=== PATIENT | male | born 1960 | race African-American/Black ===

== ENCOUNTER 2017-01-23 05:49 | Day surgery (SDC) | payer MEDICARE ==
[~2017-01-23] VITALS: Ht 175.3 cm; Wt 137.0 kg
[~2017-01-23 05:49] MED LIST: ALLO300T PO; AMLO5TAB2 PO; AMOX1TAB64 PO; ASPI-515 PO; ATOR40TA PO; CALC0.25 PO; CALC300T5 PO; CARV-39 PO; CLON0.3T47 PO; COLC0.6T37 PO; GLIP10TA PO; HYDR-3240 PO; INSU100I13 SC; INSU100I28 SC; INSU100V8 SQ; LINA5TAB PO; LOSA25TA5 PO; MULT-516 PO; OXYC5TAB3 PO; TRAZ50TA18 PO; ZOLP10TA PO
[2017-01-23 06:10] VITALS: BP 146/88
[2017-01-23] MEDS ORDERED: LACTATED RINGERS 1,000 ML IV SCH (06:13)
[2017-01-23] MEDS ORDERED: LIDOCAINE 1%, 2ML ONE (06:40)
[2017-01-23] MEDS ORDERED: SODIUM CHLORIDE 0.9% 1,000 ML IV SCH (06:53)
[2017-01-23 06:58] VITALS: BP 146/88
[2017-01-23] MEDS ORDERED: LIDOCAINE 1%, 2ML SQ PRN (07:00)
[2017-01-23] MEDS ORDERED: FENTANYL PF 100 MCG/2ML ONE ×2 (07:00→07:50)
[2017-01-23] MEDS ORDERED: PROTAMINE SULFATE 10 MG/ML, 5ML ONE (07:01)
[2017-01-23] MEDS ORDERED: HEPARIN 1,000 UNITS/ML, 10ML ONE (07:01)
[2017-01-23] MEDS ORDERED: BUPIVACAINE/PF 0.5% ONE (07:01)
[2017-01-23] MEDS ORDERED: THROMBIN 5,000 UNIT VIAL TP ONE (07:02)
[2017-01-23] MEDS ORDERED: LIDOCAINE-MPF 2% ,5ML ONE (07:15)
[2017-01-23] MEDS ORDERED: PROPOFOL 10 MG/ML, 50ML ONE (07:33)
[2017-01-23] MEDS ORDERED: CEFAZOLIN 1,000 MG ONE (07:33)
[2017-01-23] MEDS ORDERED: FENTANYL PF 250 MCG/5ML ONE (08:09)
[2017-01-23] MEDS ORDERED: LABETALOL 5MG/ML, 20ML IV PRN (09:00)
[2017-01-23] MEDS ORDERED: ONDANSETRON 2MG/ML, 2ML IVPush PRN (09:00)
[2017-01-23] MEDS ORDERED: FENTANYL PF 100 MCG/2ML IV PRN (09:00)
[2017-01-23] MEDS ORDERED: OXYcodone 5 MG/5 ML ORAL.SOL UDC PO PRN (09:00)
== END 2017-01-23 11:10 | disposition home or self-care (01) ==
LOC: OUT 05:49
PROVIDERS: ATTEND Surgery Vascular Surgery
DX: T82.590A Other mechanical complication of surgically created arteriovenous fistula, initial encounter (principal); E11.22 Type 2 diabetes mellitus with diabetic chronic kidney disease; I13.2 Hypertensive heart and chronic kidney disease with heart failure and with stage 5 chronic kidney disease, or end stage renal disease; N18.6 End stage renal disease; I50.9 Heart failure, unspecified; Z99.2 Dependence on renal dialysis; I25.10 Atherosclerotic heart disease of native coronary artery without angina pectoris; K21.9 Gastro-esophageal reflux disease without esophagitis; G47.33 Obstructive sleep apnea (adult) (pediatric); Z72.89 Other problems related to lifestyle; Y83.2 Surgical operation with anastomosis, bypass or graft as the cause of abnormal reaction of the patient, or of later complication, without mention of misadventure at the time of the procedure
CPT/HCPCS: 36415; 36821; 37607; 80047; J0690; J1644; J2704; J3010; J3490; J7030; J2720

== ENCOUNTER 2017-04-10 07:42 | Day surgery (SDC) | payer MEDICARE ==
[~2017-04-10] VITALS: Ht 175.3 cm; Wt 135.0 kg
[~2017-04-10 07:42] MED LIST changes: +BUPIVACAINE/PF-EPI 0.5% 1:200K ONE; +HEPARIN 1,000 UNITS/ML, 10ML ONE; +PROTAMINE SULFATE 10 MG/ML, 5ML ONE; +THROMBIN 5,000 UNIT VIAL TP ONE
[2017-04-10] MEDS ORDERED: FENTANYL PF 250 MCG/5ML ONE (08:24)
[2017-04-10] MEDS ORDERED: MIDAZOLAM 1 MG/ML, 2ML ONE (08:24)
[2017-04-10 08:25] VITALS: BP 150/96
[2017-04-10] MEDS ORDERED: CEFAZOLIN 1,000 MG ONE (09:30)
[2017-04-10] MEDS ORDERED: PROPOFOL 10 MG/ML, 20ML ONE (09:30)
[2017-04-10] MEDS ORDERED: SUCCINYLCHOLINE 20 MG/ML, 10ML ONE (09:30)
[2017-04-10] MEDS ORDERED: ROCURONIUM 10 MG/ML ONE (09:30)
[2017-04-10] MEDS ORDERED: SUGAMMADEX 200 MG/2 ML IVPush ONE (10:00)
[2017-04-10] MEDS ORDERED: FENTANYL PF 100 MCG/2ML ONE ×2 (10:54→12:09)
[2017-04-10] MEDS ORDERED: HYDROmorphone 1 MG/ML, 1ML IV PRN (11:00)
[2017-04-10] MEDS ORDERED: METOCLOPRAMIDE 5 MG/ML, 2ML IV PRN (11:00)
[2017-04-10] MEDS ORDERED: ACETAMINOPHEN 325 MG TABLET PO PRN (11:00)
[2017-04-10] MEDS ORDERED: hydrALAzine 20 MG/ML, 1ML IV PRN (11:00)
[2017-04-10] MEDS: FENTANYL PF 100 MCG/2ML IV PRN ×4 (11:00→12:10)
[2017-04-10] MEDS ORDERED: LABETALOL 5MG/ML, 20ML IV PRN (11:00)
[2017-04-10] MEDS ORDERED: ONDANSETRON 2MG/ML, 2ML IVPush PRN (11:00)
[2017-04-10] MEDS ORDERED: OXYcodone 5 MG/5 ML ORAL.SOL UDC ONE ×2 (11:03→11:40)
[2017-04-10] MEDS: OXYcodone 5 MG/5 ML ORAL.SOL UDC PO PRN ×2 (11:05→11:44)
[2017-04-10] MEDS ORDERED: ACETAMINOPHEN 325 MG/10.15 ML UDC ONE (11:40)
[2017-04-10] MEDS ORDERED: HEPARIN 1,000 UNITS/ML, 10ML IV ONE (12:00)
== END 2017-04-10 13:15 ==
LOC: OUT 07:42
PROVIDERS: ATTEND Surgery Vascular Surgery
DX: T82.49XA Other complication of vascular dialysis catheter, initial encounter (principal); E11.22 Type 2 diabetes mellitus with diabetic chronic kidney disease; I12.0 Hypertensive chronic kidney disease with stage 5 chronic kidney disease or end stage renal disease; N18.6 End stage renal disease; Y83.9 Surgical procedure, unspecified as the cause of abnormal reaction of the patient, or of later complication, without mention of misadventure at the time of the procedure; Y92.9 Unspecified place or not applicable; Z91.09 Other allergy status, other than to drugs and biological substances
CPT/HCPCS: 36415; 36832; 80047; C1768; J0330; J0690; J1644; J2250; J2704; J2720; J3010

== ENCOUNTER 2017-05-27 11:21 | Inpatient (IN) | payer MEDICARE ==
[~2017-05-27] VITALS: Ht 175.3 cm; Wt 135.0 kg
[~2017-05-27 11:21] MED LIST changes: -BUPIVACAINE/PF-EPI 0.5% 1:200K ONE; -HEPARIN 1,000 UNITS/ML, 10ML ONE; -PROTAMINE SULFATE 10 MG/ML, 5ML ONE; -THROMBIN 5,000 UNIT VIAL TP ONE
[2017-05-27 12:34] LABS: BLOOD UREA NITROGEN 31 mg/dL (7-18)
[2017-05-27 12:47] LABS: HEMATOCRIT 35.1 % (39.2-51.8); HEMOGLOBIN 11.5 g/dL (13.7-18.0)
[2017-05-27] MEDS ORDERED: LIDOCAINE GEL 2%, 5ML ONE (13:15)
[2017-05-27] MEDS ORDERED: LIDOCAINE GEL 2%, 5ML TP ONE (13:30)
[2017-05-27] MEDS ORDERED: COLCHICINE 0.6 MG TABLET PO PRN (14:30)
[2017-05-27] MEDS ORDERED: TEMAZEPAM 15 MG CAPSULE PO PRN (14:30)
[2017-05-27] MEDS ORDERED: ACETAMINOPHEN 325 MG TABLET PO PRN ×2 (14:30→18:00)
[2017-05-27] MEDS ORDERED: hydrALAzine 20 MG/ML, 1ML IVPush PRN (14:30)
[2017-05-27 15:12] VITALS: BP 168/102
[2017-05-27 15:16] VITALS: BP 168/102
[2017-05-27] MEDS ORDERED: BUPIVACAINE/PF 0.5% ONE (16:20)
[2017-05-27] MEDS ORDERED: HEPARIN 1,000 UNITS/ML, 10ML ONE (16:20)
[2017-05-27] MEDS ORDERED: THROMBIN 5,000 UNIT VIAL TP ONE (16:20)
[2017-05-27] MEDS ORDERED: PROTAMINE SULFATE 10 MG/ML, 5ML ONE (16:20)
[2017-05-27 16:46] LABS: ASPARTATE AMINO TRANSFERASE 16 U/L (15-37)
[2017-05-27] MEDS ORDERED: FENTANYL PF 500 MCG/10ML ONE (16:52)
[2017-05-27] MEDS: CALCIUM CARBONATE 500 MG TAB.CHEW PO SCH (17:07)
[2017-05-27] MEDS ORDERED: ONDANSETRON 2MG/ML, 2ML ONE ×2 (17:23→21:41)
[2017-05-27] MEDS ORDERED: GLYCOPYRROLATE 0.2MG/1ML ONE (17:23)
[2017-05-27] MEDS ORDERED: CEFAZOLIN 1,000 MG ONE (17:23)
[2017-05-27] MEDS ORDERED: ROCURONIUM 10 MG/ML ONE (17:23)
[2017-05-27] MEDS ORDERED: NEOSTIGMINE 1 MG/ML, 10ML ONE (17:23)
[2017-05-27] MEDS ORDERED: PROPOFOL 10 MG/ML, 20ML ONE (17:23)
[2017-05-27] MEDS ORDERED: BUPIVACAINE/PF 0.5% INFIL ONE (17:51)
[2017-05-27] MEDS ORDERED: HEPARIN 1,000 UNITS/ML, 10ML IV ONE ×2 (17:53→20:08)
[2017-05-27] MEDS ORDERED: FENTANYL PF 100 MCG/2ML IV PRN (18:00)
[2017-05-27] MEDS ORDERED: ALBUTEROL SULFATE 2.5 MG/3 ML NPPB PRN (18:00)
[2017-05-27] MEDS ORDERED: EPHEDRINE 50 MG/ML, 1ML IVPush PRN (18:00)
[2017-05-27] MEDS ORDERED: METOPROLOL 1 MG/ML, 5ML IV PRN (18:00)
[2017-05-27] MEDS ORDERED: OXYcodone 5 MG/5 ML ORAL.SOL UDC PO PRN (18:00)
[2017-05-27] MEDS ORDERED: ONDANSETRON 2MG/ML, 2ML IVPush PRN (18:00)
[2017-05-27] MEDS ORDERED: LABETALOL 5MG/ML, 20ML IV PRN (18:00)
[2017-05-27] MEDS ORDERED: HYDROmorphone 1 MG/ML, 1ML IV PRN (18:00)
[2017-05-27] MEDS ORDERED: HEPARIN 1,000 UNITS/ML, 30ML ONE (20:01)
[2017-05-27] MEDS ORDERED: HEPARIN 1,000 UNITS/ML, 30ML IVPush ONE (20:04)
[2017-05-27] MEDS ORDERED: VISIPAQUE 320MG/ML, 50ML BOTTLE IV ONE ×2 (21:01→21:04)
[2017-05-27] MEDS ORDERED: VISIPAQUE 320MG/ML, 50ML BOTTLE ONE (21:17)
[2017-05-27] MEDS ORDERED: ACETAMINOPHEN 325 MG TABLET ONE (21:37)
[2017-05-27] MEDS ORDERED: PROMETHAZINE 25 MG/ML, 1ML ONE (21:38)
[2017-05-27] MEDS ORDERED: OXYcodone 5 MG/5 ML ORAL.SOL UDC ONE (21:39)
[2017-05-27] MEDS ORDERED: METOPROLOL 1 MG/ML, 5ML ONE (21:54)
[2017-05-27 22:30] VITALS: BP 133/86
[2017-05-27] MEDS: ATORVASTATIN 40 MG TABLET PO SCH (23:06)
[2017-05-27] MEDS: CARVEDILOL 25 MG TABLET PO SCH (23:06)
[2017-05-27] MEDS: MORPHINE SULFATE 4 MG/ML, 1ML IVPush PRN (23:06)
[2017-05-28] MEDS: INSULIN DETEMIR 100 UNITS/ML, PEN SQ-INSULIN SCH ×2 (00:22→23:02)
[2017-05-28] MEDS: TRAZODONE 50MG TABLET PO PRN (01:31)
[2017-05-28] MEDS: HYDROcodone/APAP 5/325 TABLET PO PRN ×2 (03:10→23:02)
[2017-05-28 04:12] VITALS: BP 123/64
[2017-05-28 05:07] LABS: BLOOD UREA NITROGEN 36 mg/dL (7-18)
[2017-05-28 08:00] VITALS: BP 117/74
[2017-05-28] MEDS ORDERED: ALLOPURINOL 300 MG TABLET PO SCH (09:00)
[2017-05-28] MEDS: CALCIUM CARBONATE 500 MG TAB.CHEW PO SCH ×3 (09:31→17:00)
[2017-05-28] MEDS: CARVEDILOL 25 MG TABLET PO SCH ×2 (09:32→22:20)
[2017-05-28] MEDS: ASPIRIN 81 MG TABLET EC PO SCH (09:32)
[2017-05-28] MEDS: MULTIVITAMIN 1 TABLET PO SCH (09:32)
[2017-05-28] MEDS: LOSARTAN 25MG TABLET PO SCH (09:32)
[2017-05-28] MEDS: ALLOPURINOL 100 MG TABLET PO SCH (09:32)
[2017-05-28] MEDS: AMLODIPINE 5 MG TABLET PO SCH (09:33)
[2017-05-28 14:00] VITALS: BP 110/68
[2017-05-28] MEDS ORDERED: FENTANYL PF 100 MCG/2ML ONE ×2 (14:31)
[2017-05-28] MEDS ORDERED: MIDAZOLAM 1 MG/ML, 2ML ONE (14:31)
[2017-05-28] MEDS ORDERED: THROMBIN 20,000 UNIT VIAL TP ONE (14:34)
[2017-05-28] MEDS ORDERED: HEPARIN 1,000 UNITS/ML, 10ML ONE (14:34)
[2017-05-28] MEDS ORDERED: PROTAMINE SULFATE 10 MG/ML, 5ML ONE (14:34)
[2017-05-28] MEDS ORDERED: PAPAVERINE 30 MG/ML, 2ML ONE (14:34)
[2017-05-28] MEDS ORDERED: KETAMINE 10 MG/ML, 20ML ONE (14:46)
[2017-05-28] MEDS ORDERED: ONDANSETRON 2MG/ML, 2ML ONE (14:46)
[2017-05-28] MEDS ORDERED: PHENYLEPHRINE 10 MG/ML ONE (14:46)
[2017-05-28] MEDS ORDERED: SUCCINYLCHOLINE 20 MG/ML, 10ML ONE (14:46)
[2017-05-28] MEDS ORDERED: CEFAZOLIN 1,000 MG ONE (14:46)
[2017-05-28] MEDS ORDERED: METOCLOPRAMIDE 5 MG/ML, 2ML ONE (14:46)
[2017-05-28] MEDS ORDERED: ROCURONIUM 10 MG/ML ONE (14:46)
[2017-05-28] MEDS ORDERED: PROPOFOL 10 MG/ML, 20ML ONE (14:46)
[2017-05-28] MEDS ORDERED: HEPARIN 5,000 UNITS/ML, 1ML ONE (15:19)
[2017-05-28] MEDS ORDERED: LABETALOL 5MG/ML, 20ML IV PRN (15:30)
[2017-05-28] MEDS ORDERED: PROMETHAZINE 25 MG/ML, 1ML IV PRN (15:30)
[2017-05-28] MEDS ORDERED: OXYcodone 5 MG/5 ML ORAL.SOL UDC PO PRN (15:30)
[2017-05-28] MEDS ORDERED: ONDANSETRON 2MG/ML, 2ML IVPush PRN (15:30)
[2017-05-28] MEDS ORDERED: FENTANYL PF 100 MCG/2ML IV PRN (15:30)
[2017-05-28] MEDS ORDERED: MEPERIDINE/PF 25MG/0.5ML IVPush PRN (15:30)
[2017-05-28] MEDS ORDERED: HYDROmorphone 1 MG/ML, 1ML IV PRN (15:30)
[2017-05-28] MEDS: INSULIN REGULAR 100 UNITS/ML, 3ML VIAL SQ-INSULIN SCH ×2 (16:00→23:02)
[2017-05-28] MEDS ORDERED: BUPIVACAINE/PF 0.5% ONE (17:15)
[2017-05-28] MEDS ORDERED: OMNIPAQUE 350 MG/ML, 50 ML BOTTLE IV ONE (17:30)
[2017-05-28] MEDS ORDERED: HYDROmorphone 1 MG/ML, 1ML ONE (17:30)
[2017-05-28] MEDS ORDERED: OMNIPAQUE 350 MG/ML, 50 ML BOTTLE ONE (18:10)
[2017-05-28] MEDS ORDERED: OXYcodone 5 MG/5 ML ORAL.SOL UDC ONE (18:23)
[2017-05-28] MEDS: MORPHINE SULFATE 4 MG/ML, 1ML IVPush PRN (19:47)
[2017-05-28] MEDS: ONDANSETRON 2MG/ML, 2ML IVPush PRN (19:47)
[2017-05-28 21:15] VITALS: BP 101/58
[2017-05-28 22:09] VITALS: BP 105/57
[2017-05-28] MEDS: ATORVASTATIN 40 MG TABLET PO SCH (22:20)
[2017-05-29] MEDS: TRAZODONE 50MG TABLET PO PRN (00:09)
[2017-05-29 01:43] VITALS: BP 103/61
[2017-05-29] MEDS: ONDANSETRON 2MG/ML, 2ML IVPush PRN (04:20)
[2017-05-29 04:51] LABS: BLOOD UREA NITROGEN 37 mg/dL (7-18)
[2017-05-29] MEDS: INSULIN REGULAR 100 UNITS/ML, 3ML VIAL SQ-INSULIN SCH ×3 (06:35→16:10)
[2017-05-29 07:00] VITALS: BP 109/61
[2017-05-29] MEDS: CALCIUM CARBONATE 500 MG TAB.CHEW PO SCH ×3 (08:06→16:10)
[2017-05-29] MEDS: LOSARTAN 25MG TABLET PO SCH (08:07)
[2017-05-29] MEDS: ALLOPURINOL 100 MG TABLET PO SCH (08:07)
[2017-05-29] MEDS: MULTIVITAMIN 1 TABLET PO SCH (08:07)
[2017-05-29] MEDS: AMLODIPINE 5 MG TABLET PO SCH (08:07)
[2017-05-29] MEDS: ASPIRIN 81 MG TABLET EC PO SCH (08:07)
[2017-05-29] MEDS: CARVEDILOL 25 MG TABLET PO SCH (08:07)
[2017-05-29] MEDS ORDERED: CALCITRIOL 0.25 MCG CAPSULE PO SCH (09:00)
[2017-05-29] MEDS ORDERED: ALBUMIN HUMAN 25% 100 ML IV PRN (10:30)
[2017-05-29] MEDS ORDERED: ALBUMIN HUMAN 25% 50 ML IV PRN (10:30)
[2017-05-29] MEDS ORDERED: HYDR-3240 PO (14:37)
[2017-05-29 14:40] VITALS: BP 107/60
[2017-05-29 16:12] VITALS: BP 114/62
[2017-05-29 18:00] VITALS: BP 114/62
[2017-05-30] MEDS ORDERED: ALLOPURINOL 100 MG TABLET PO SCH (09:00)
[2017-05-30 10:53] LABS: HEP B SURF. AB 11.4 mIU/mL (0.0-10.0)
== END 2017-05-29 18:15 | disposition home or self-care (01) | DRG 252 ==
LOC: ED 12:19 → EDIP 12:35 → OBSVTOIN 12:35 → 4NOR 14:45
PROVIDERS: ADMIT Hospitalist; ATTEND Internal Medicine
PROC: 05CB0ZZ Extirpation of Matter from Right Basilic Vein, Open Approach (ICD-10-PCS; 2017-05-27)
PROC: 03WY0JZ Revision of Synthetic Substitute in Upper Artery, Open Approach (ICD-10-PCS; 2017-05-27)
PROC: 057B0ZZ Dilation of Right Basilic Vein, Open Approach (ICD-10-PCS; 2017-05-27)
PROC: B2141ZZ Fluoroscopy of Right Heart using Low Osmolar Contrast (ICD-10-PCS; 2017-05-27)
PROC: 0JPV3XZ Removal of Tunneled Vascular Access Device from Upper Extremity Subcutaneous Tissue and Fascia, Percutaneous Approach (ICD-10-PCS; 2017-05-27)
PROC: 037Y3ZZ Dilation of Upper Artery, Percutaneous Approach (ICD-10-PCS; principal; 2017-05-27 17:00)
PROC: 02H633Z Insertion of Infusion Device into Right Atrium, Percutaneous Approach (ICD-10-PCS; 2017-05-28)
PROC: 03170JF Bypass Right Brachial Artery to Lower Arm Vein with Synthetic Substitute, Open Approach (ICD-10-PCS; 2017-05-28)
PROC: 0JH63XZ Insertion of Tunneled Vascular Access Device into Chest Subcutaneous Tissue and Fascia, Percutaneous Approach (ICD-10-PCS; 2017-05-28)
DX: T82.868A Thrombosis due to vascular prosthetic devices, implants and grafts, initial encounter (principal); N18.6 End stage renal disease; I13.2 Hypertensive heart and chronic kidney disease with heart failure and with stage 5 chronic kidney disease, or end stage renal disease; E11.22 Type 2 diabetes mellitus with diabetic chronic kidney disease; Z68.41 Body mass index [BMI] 40.0-44.9, adult; D63.1 Anemia in chronic kidney disease; E66.01 Morbid (severe) obesity due to excess calories; E78.5 Hyperlipidemia, unspecified; I48.91 Unspecified atrial fibrillation; I50.9 Heart failure, unspecified; E11.51 Type 2 diabetes mellitus with diabetic peripheral angiopathy without gangrene; K21.9 Gastro-esophageal reflux disease without esophagitis; M10.9 Gout, unspecified; Y83.2 Surgical operation with anastomosis, bypass or graft as the cause of abnormal reaction of the patient, or of later complication, without mention of misadventure at the time of the procedure; Z99.2 Dependence on renal dialysis; Z88.8 Allergy status to other drugs, medicaments and biological substances
CPT/HCPCS: 36415; 71010; 75710; 76000; 80048; 80053; 80069; 82962; 85025; 85610; 85730; 86704; 86706; 87340; 93005; 99285; C1894; J0690; J1170; J1644; J1815; J2250; J2405; J2704; J2710; J2720; J3010; J3490; P9047; Q9967; C1751; C1757; C1768; C1769; J0330; J0360; J2370; J2440; J2765

== ENCOUNTER 2017-10-12 09:11 | Day surgery (SDC) | payer MEDICARE ==
[~2017-10-12] VITALS: Ht 175.3 cm; Wt 133.3 kg
[2017-10-12] MEDS ORDERED: BUPIVACAINE/PF 0.5% ONE (10:05)
[2017-10-12] MEDS ORDERED: SODIUM CHLORIDE 0.9% 1,000 ML IV SCH (10:20)
[2017-10-12 10:35] VITALS: BP 168/92
[2017-10-12] MEDS ORDERED: GABA300C10 PO (10:35)
[2017-10-12] MEDS ORDERED: HYDR-3240 PO (11:00)
[2017-10-12] MEDS ORDERED: FENTANYL PF 250 MCG/5ML ONE (11:30)
[2017-10-12] MEDS ORDERED: MIDAZOLAM 1 MG/ML, 2ML ONE (11:30)
[2017-10-12] MEDS ORDERED: CEFAZOLIN 1,000 MG ONE ×3 (11:31)
[2017-10-12] MEDS ORDERED: PROPOFOL 10 MG/ML, 20ML ONE (11:31)
[2017-10-12] MEDS ORDERED: SODIUM CHLORIDE 0.9% PF 10ML ONE (11:32)
[2017-10-12] MEDS ORDERED: ROCURONIUM 10 MG/ML,10ML ONE (11:33)
[2017-10-12] MEDS ORDERED: GLYCOPYRROLATE 0.4 MG/2 ML, 2ML ONE ×2 (11:34)
[2017-10-12] MEDS ORDERED: NEOSTIGMINE 1 MG/ML, 10ML ONE (11:34)
[2017-10-12] MEDS ORDERED: HEPARIN 1,000 UNITS/ML, 10ML DIALYCATH ONE (12:22)
== END 2017-10-12 14:15 ==
LOC: OUT 09:11
PROVIDERS: ATTEND Surgery Vascular Surgery
DX: I12.0 Hypertensive chronic kidney disease with stage 5 chronic kidney disease or end stage renal disease (principal); N18.6 End stage renal disease; E11.22 Type 2 diabetes mellitus with diabetic chronic kidney disease; Z79.82 Long term (current) use of aspirin; Z88.8 Allergy status to other drugs, medicaments and biological substances; Z79.4 Long term (current) use of insulin
CPT/HCPCS: 36415; 49324; 80047; C1750; J0690; J1644; J2250; J2704; J2710; J3010; J3490; J7030

== ENCOUNTER 2017-11-13 14:11 | Day surgery (SDC) | payer MEDICARE ==
[~2017-11-13] VITALS: Ht 175.3 cm; Wt 133.4 kg
[~2017-11-13 14:11] MED LIST changes: +GABA300C10 PO; +HEPARIN 1,000 UNITS/ML, 10ML ONE
[2017-11-13] MEDS ORDERED: EPINEPHRINE 1 MG/ML, 1ML ONE (14:23)
[2017-11-13] MEDS ORDERED: BUPIVACAINE/PF 0.5% ONE (14:23)
[2017-11-13] MEDS ORDERED: PREG50CA PO (15:00)
[2017-11-13] MEDS ORDERED: SODIUM CHLORIDE 0.9% 1,000 ML IV SCH (15:09)
[2017-11-13 15:10] VITALS: BP 187/121
[2017-11-13] MEDS ORDERED: LIDOCAINE-MPF 1%, 2ML ONE (15:16)
[2017-11-13 16:06] VITALS: BP 163/96
[2017-11-13] MEDS ORDERED: FENTANYL PF 100 MCG/2ML ONE (16:07)
[2017-11-13] MEDS ORDERED: DEXAMETHASONE 4 MG/ML, 1ML ONE (16:30)
[2017-11-13] MEDS ORDERED: ONDANSETRON 2MG/ML, 2ML ONE (16:30)
[2017-11-13] MEDS ORDERED: LIDOCAINE 1%, 2ML SQ PRN (16:30)
[2017-11-13] MEDS ORDERED: PROPOFOL 10 MG/ML, 20ML ONE (16:30)
[2017-11-13] MEDS ORDERED: SUCCINYLCHOLINE 20 MG/ML, 10ML ONE (16:30)
[2017-11-13] MEDS ORDERED: CEFAZOLIN 1,000 MG ONE (16:30)
[2017-11-13] MEDS ORDERED: FENTANYL PF 100 MCG/2ML IV PRN (17:00)
[2017-11-13] MEDS ORDERED: OXYcodone 5 MG/5 ML ORAL.SOL UDC PO PRN (17:00)
[2017-11-13] MEDS ORDERED: LABETALOL 5MG/ML, 20ML IV PRN (17:00)
[2017-11-13] MEDS ORDERED: MEPERIDINE/PF 25MG/0.5ML IVPush PRN (17:00)
[2017-11-13] MEDS ORDERED: PROMETHAZINE 12.5 MG SUPP PR PRN (17:00)
[2017-11-13] MEDS ORDERED: MIDAZOLAM 1 MG/ML, 2ML IV PRN (17:00)
[2017-11-13] MEDS ORDERED: DIAZEPAM 5 MG/ML, 2ML IVPush PRN (17:00)
[2017-11-13] MEDS ORDERED: ACETAMINOPHEN 325 MG TABLET PO PRN (17:00)
[2017-11-13] MEDS ORDERED: HYDROmorphone 1 MG/ML, 1ML IV PRN (17:00)
[2017-11-13] MEDS ORDERED: PROMETHAZINE 25 MG/ML, 1ML IV PRN (17:00)
[2017-11-13] MEDS ORDERED: ALBUTEROL/IPRATROPIUM 2.5MG/0.5MG, 3 ML NPPB PRN (17:00)
[2017-11-13] MEDS ORDERED: ONDANSETRON 2MG/ML, 2ML IVPush PRN (17:00)
[2017-11-13] MEDS ORDERED: ACETAMINOPHEN 650 MG/20.3 ML UDC ONE (17:24)
== END 2017-11-13 18:26 | disposition home or self-care (01) ==
LOC: OUT 14:11
PROVIDERS: ATTEND Surgery Vascular Surgery
DX: E11.22 Type 2 diabetes mellitus with diabetic chronic kidney disease (principal); I13.11 Hypertensive heart and chronic kidney disease without heart failure, with stage 5 chronic kidney disease, or end stage renal disease; N18.6 End stage renal disease; I25.10 Atherosclerotic heart disease of native coronary artery without angina pectoris; E78.5 Hyperlipidemia, unspecified; M10.9 Gout, unspecified; F41.1 Generalized anxiety disorder; K21.9 Gastro-esophageal reflux disease without esophagitis; Z88.8 Allergy status to other drugs, medicaments and biological substances; Z99.2 Dependence on renal dialysis
CPT/HCPCS: 36415; 49324; 80047; 93005; C1750; J0171; J0330; J0690; J1100; J1644; J2405; J2704; J3010; J3490

== ENCOUNTER 2018-01-02 13:46 | Emergency (ER) | payer MEDICARE ==
[~2018-01-02] VITALS: Ht 175.3 cm; Wt 133.0 kg
[~2018-01-02 13:46] MED LIST changes: -HEPARIN 1,000 UNITS/ML, 10ML ONE; +PREG50CA PO
[2018-01-02 13:55] VITALS: BP 164/84
[2018-01-02 14:38] LABS: BASOPHILS # (AUTO) 0.02 x10^3/uL (0-0.1); BASOPHILS % (AUTO) 0 % (0-1); EOSINOPHILS # (AUTO) 0.17 x10^3/uL (0-0.4); EOSINOPHILS % (AUTO) 3 % (1-7); LYMPHOCYTES # (AUTO) 0.72 x10^3/uL (1-3.4); LYMPHOCYTES % (AUTO) 11 % (22-44); MD NO; MEAN CORPUSCULAR HEMOGLOBIN 32.3 pg (27.5-34.5); MEAN CORPUSCULAR HGB CONC 33.4 g/dL (33.2-36.2); MEAN CORPUSCULAR VOLUME 96.8 fL (81-97); MEAN PLATELET VOLUME 8.1 fL (7.4-10.4); MONOCYTES # (AUTO) 0.31 x10^3/uL (0.2-0.8); MONOCYTES % (AUTO) 5 % (2-9); NEUTROPHILS % (AUTO) 81 % (42-75); PLATELET COUNT 275 x10^3/uL (130-400); RED BLOOD COUNT 3.42 x10^6/uL (4.38-5.82); RED CELL DISTRIBUTION WIDTH 14.3 % (9.4-14.8)
[2018-01-02 14:46] LABS: ALBUMIN 3.5 g/dL (3.4-5.0); ANION GAP 11 mmol/L (5-15); CALCIUM 8.4 mg/dL (8.5-10.1); CHLORIDE 102 mmol/L (98-107)
[2018-01-02] MEDS ORDERED: CEFTRIAXONE 1,000 MG IM ONE (16:00)
[2018-01-02] MEDS ORDERED: HYDROcodone/APAP 5/325 TABLET PO ONE (16:00)
[2018-01-02] MEDS ORDERED: LIDOCAINE-MPF 1%, 5ML ONE (16:08)
[2018-01-02] MEDS ORDERED: CEFTRIAXONE 1,000 MG ONE (16:08)
[2018-01-02] MEDS ORDERED: HYDROcodone/APAP 5/325 TABLET ONE (16:09)
== END 2018-01-02 18:06 | disposition home or self-care (01) ==
LOC: ED 17:22
DX: S99.921A Unspecified injury of right foot, initial encounter (principal); E11.621 Type 2 diabetes mellitus with foot ulcer; L97.509 Non-pressure chronic ulcer of other part of unspecified foot with unspecified severity; W06.XXXA Fall from bed, initial encounter; Y93.89 Activity, other specified; Y99.8 Other external cause status; Y92.89 Other specified places as the place of occurrence of the external cause
CPT/HCPCS: 36415; 73660; 80048; 82040; 85025; 96372; 99285; J0696

== ENCOUNTER 2018-01-26 12:32 | Emergency (ER) | payer MEDICARE ==
[~2018-01-26] VITALS: Ht 175.3 cm; Wt 139.6 kg
[2018-01-26 12:33] VITALS: BP 150/88
== END 2018-01-26 16:00 | disposition home or self-care (01) ==
LOC: ED 15:54
DX: L89.893 Pressure ulcer of other site, stage 3 (principal); L89.892 Pressure ulcer of other site, stage 2; E11.621 Type 2 diabetes mellitus with foot ulcer; K21.9 Gastro-esophageal reflux disease without esophagitis; I12.0 Hypertensive chronic kidney disease with stage 5 chronic kidney disease or end stage renal disease; E11.22 Type 2 diabetes mellitus with diabetic chronic kidney disease; N18.6 End stage renal disease; I48.91 Unspecified atrial fibrillation; G89.29 Other chronic pain; E83.52 Hypercalcemia; Z99.2 Dependence on renal dialysis
CPT/HCPCS: 99284

== ENCOUNTER → 2018-01-31 | Outpatient (CLI) | payer MEDICARE | END | disposition home or self-care (01) | LOC: WOUND 10:47 | PROVIDERS: ATTEND Family Medicine | DX: E11.621 Type 2 diabetes mellitus with foot ulcer (principal); L97.521 Non-pressure chronic ulcer of other part of left foot limited to breakdown of skin; L97.511 Non-pressure chronic ulcer of other part of right foot limited to breakdown of skin; E11.22 Type 2 diabetes mellitus with diabetic chronic kidney disease; I13.2 Hypertensive heart and chronic kidney disease with heart failure and with stage 5 chronic kidney disease, or end stage renal disease; N18.6 End stage renal disease; I50.9 Heart failure, unspecified; E78.5 Hyperlipidemia, unspecified; E66.01 Morbid (severe) obesity due to excess calories; I89.0 Lymphedema, not elsewhere classified; I48.91 Unspecified atrial fibrillation; K21.9 Gastro-esophageal reflux disease without esophagitis; M10.9 Gout, unspecified; F32.9 Major depressive disorder, single episode, unspecified; Z99.2 Dependence on renal dialysis; Z79.4 Long term (current) use of insulin; Z79.82 Long term (current) use of aspirin; Z68.41 Body mass index [BMI] 40.0-44.9, adult | CPT/HCPCS: 11042; G0463; WOU0463 ==

== ENCOUNTER → 2018-02-07 | Outpatient (CLI) | payer MEDICARE | END | disposition home or self-care (01) | LOC: WOUND 14:21 | PROVIDERS: ATTEND Internal Medicine | DX: E11.621 Type 2 diabetes mellitus with foot ulcer (principal); L97.521 Non-pressure chronic ulcer of other part of left foot limited to breakdown of skin; L97.511 Non-pressure chronic ulcer of other part of right foot limited to breakdown of skin; E11.22 Type 2 diabetes mellitus with diabetic chronic kidney disease; I13.2 Hypertensive heart and chronic kidney disease with heart failure and with stage 5 chronic kidney disease, or end stage renal disease; N18.6 End stage renal disease; I50.9 Heart failure, unspecified; E78.5 Hyperlipidemia, unspecified; E66.01 Morbid (severe) obesity due to excess calories; G89.29 Other chronic pain; I48.91 Unspecified atrial fibrillation; K21.9 Gastro-esophageal reflux disease without esophagitis; M10.9 Gout, unspecified; F32.9 Major depressive disorder, single episode, unspecified; Z99.2 Dependence on renal dialysis; Z68.41 Body mass index [BMI] 40.0-44.9, adult; Z79.4 Long term (current) use of insulin; Z79.82 Long term (current) use of aspirin | CPT/HCPCS: 97597 ==

== ENCOUNTER → 2018-02-21 | Outpatient (CLI) | payer MEDICARE | END | disposition home or self-care (01) | LOC: WOUND 14:30 | PROVIDERS: ATTEND Internal Medicine | DX: E11.621 Type 2 diabetes mellitus with foot ulcer (principal); L97.511 Non-pressure chronic ulcer of other part of right foot limited to breakdown of skin; E66.01 Morbid (severe) obesity due to excess calories; K21.9 Gastro-esophageal reflux disease without esophagitis; E11.22 Type 2 diabetes mellitus with diabetic chronic kidney disease; I13.2 Hypertensive heart and chronic kidney disease with heart failure and with stage 5 chronic kidney disease, or end stage renal disease; N18.6 End stage renal disease; I50.9 Heart failure, unspecified; E78.5 Hyperlipidemia, unspecified; F32.9 Major depressive disorder, single episode, unspecified; E11.40 Type 2 diabetes mellitus with diabetic neuropathy, unspecified; G89.29 Other chronic pain; I48.91 Unspecified atrial fibrillation; I89.0 Lymphedema, not elsewhere classified; Z68.41 Body mass index [BMI] 40.0-44.9, adult; Z99.2 Dependence on renal dialysis; Z79.4 Long term (current) use of insulin | CPT/HCPCS: 97602 ==

== ENCOUNTER → 2018-03-08 | Outpatient (CLI) | payer MEDICARE ==
[~2018-03-08] MED LIST changes: +NAPR375T5 PO
== END | disposition home or self-care (01) ==
LOC: WOUND 11:00
PROVIDERS: ATTEND Internal Medicine
DX: E11.621 Type 2 diabetes mellitus with foot ulcer (principal); L97.511 Non-pressure chronic ulcer of other part of right foot limited to breakdown of skin; L97.524 Non-pressure chronic ulcer of other part of left foot with necrosis of bone; B35.1 Tinea unguium; E11.22 Type 2 diabetes mellitus with diabetic chronic kidney disease; I13.0 Hypertensive heart and chronic kidney disease with heart failure and stage 1 through stage 4 chronic kidney disease, or unspecified chronic kidney disease; N18.6 End stage renal disease; I50.9 Heart failure, unspecified; E11.65 Type 2 diabetes mellitus with hyperglycemia; E11.40 Type 2 diabetes mellitus with diabetic neuropathy, unspecified; E66.9 Obesity, unspecified; E78.5 Hyperlipidemia, unspecified; I48.91 Unspecified atrial fibrillation; N25.81 Secondary hyperparathyroidism of renal origin; K21.9 Gastro-esophageal reflux disease without esophagitis; M10.9 Gout, unspecified; F32.9 Major depressive disorder, single episode, unspecified; Z86.73 Personal history of transient ischemic attack (TIA), and cerebral infarction without residual deficits; Z99.2 Dependence on renal dialysis; Z79.4 Long term (current) use of insulin; Z79.82 Long term (current) use of aspirin; Z79.899 Other long term (current) drug therapy; Z68.41 Body mass index [BMI] 40.0-44.9, adult
CPT/HCPCS: 11042

== ENCOUNTER 2018-03-11 14:32 | Inpatient (IN) | payer MEDICARE ==
[~2018-03-11] VITALS: Ht 175.3 cm; Wt 134.8 kg
[~2018-03-11 14:32] MED LIST changes: -NAPR375T5 PO
[2018-03-11] MEDS ORDERED: LIDOCAINE GEL 2%, 5ML ONE (14:57)
[2018-03-11] MEDS ORDERED: DIPHENHYDRAMINE 50 MG/ML, 1ML IVPush ONE (15:00)
[2018-03-11] MEDS ORDERED: methylPREDNISolone SOD SUCC 125 MG/2 ML ONE (15:00)
[2018-03-11] MEDS ORDERED: DIPHENHYDRAMINE 50 MG/ML, 1ML ONE (15:00)
[2018-03-11] MEDS ORDERED: methylPREDNISolone SOD SUCC 125 MG/2 ML IVPush ONE (15:00)
[2018-03-11] MEDS ORDERED: FAMOTIDINE 20 MG/2 ML IVPush ONE (15:00)
[2018-03-11] MEDS ORDERED: FAMOTIDINE 20 MG/2 ML ONE (15:01)
[2018-03-11] MEDS ORDERED: GABA300C10 PO (17:15)
[2018-03-11 18:14] LABS: BASOPHILS # (AUTO) 0.02 x10^3/uL (0-0.1); BASOPHILS % (AUTO) 0 % (0-1); EOSINOPHILS # (AUTO) 0.28 x10^3/uL (0-0.4); EOSINOPHILS % (AUTO) 3 % (1-7); LYMPHOCYTES # (AUTO) 0.26 x10^3/uL (1-3.4); LYMPHOCYTES % (AUTO) 3 % (22-44); MD NO; MEAN CORPUSCULAR HEMOGLOBIN 32.4 pg (27.5-34.5); MEAN CORPUSCULAR HGB CONC 32.8 g/dL (33.2-36.2); MEAN CORPUSCULAR VOLUME 98.6 fL (81-97); MEAN PLATELET VOLUME 8.5 fL (7.4-10.4); MONOCYTES # (AUTO) 0.38 x10^3/uL (0.2-0.8); MONOCYTES % (AUTO) 4 % (2-9); NEUTROPHILS # (AUTO) 9.37 x10^3/uL (1.8-6.8); NEUTROPHILS % (AUTO) 91 % (42-75); PLATELET COUNT 236 x10^3/uL (130-400); RED BLOOD COUNT 3.45 x10^6/uL (4.38-5.82); RED CELL DISTRIBUTION WIDTH 16.5 % (9.4-14.8)
[2018-03-11 18:21] LABS: ALBUMIN 2.9 g/dL (3.4-5.0); ANION GAP 14 mmol/L (5-15); CALCIUM 8.3 mg/dL (8.5-10.1); CHLORIDE 99 mmol/L (98-107)
[2018-03-11] MEDS ORDERED: COLCHICINE 0.6 MG TABLET PO PRN (19:00)
[2018-03-11] MEDS ORDERED: ONDANSETRON 2MG/ML, 2ML IVPush PRN (19:00)
[2018-03-11] MEDS ORDERED: ONDANSETRON ODT 4 MG PO PRN (19:00)
[2018-03-11] MEDS ORDERED: hydrALAzine 20 MG/ML, 1ML IVPush PRN (19:00)
[2018-03-11] MEDS ORDERED: ENALAPRILAT 1.25 MG/ML, 2ML IVPush PRN (19:00)
[2018-03-11] MEDS: ATORVASTATIN 40 MG TABLET PO SCH (21:30)
[2018-03-11] MEDS: CARVEDILOL 25 MG TABLET PO SCH (21:30)
[2018-03-11] MEDS: GABAPENTIN 300 MG CAPSULE PO SCH (21:30)
[2018-03-11] MEDS: FAMOTIDINE 20 MG TABLET PO SCH (21:30)
[2018-03-11 21:34] VITALS: BP 160/94
[2018-03-11] MEDS: INSULIN GLARGINE 100 UNITS/ML, PEN SQ-INSULIN SCH (22:19)
[2018-03-11] MEDS: INSULIN LISPRO 100 UNITS/ML, PEN SQ-INSULIN SCH (22:20)
[2018-03-11 22:22] VITALS: BP 171/95
[2018-03-12 01:02] VITALS: BP 114/59
[2018-03-12 05:32] LABS: MEAN CORPUSCULAR HEMOGLOBIN 32.5 pg (27.5-34.5); MEAN CORPUSCULAR HGB CONC 33.4 g/dL (33.2-36.2); MEAN CORPUSCULAR VOLUME 97.2 fL (81-97); MEAN PLATELET VOLUME 8.8 fL (7.4-10.4); PLATELET COUNT 223 x10^3/uL (130-400); RED BLOOD COUNT 3.15 x10^6/uL (4.38-5.82); RED CELL DISTRIBUTION WIDTH 16.6 % (9.4-14.8)
[2018-03-12 05:47] LABS: ALANINE AMINOTRANSFERASE 13 U/L (12-78); ALBUMIN 2.7 g/dL (3.4-5.0); ANION GAP 15 mmol/L (5-15); CALCIUM 7.6 mg/dL (8.5-10.1); CHLORIDE 99 mmol/L (98-107)
[2018-03-12 05:57] LABS: ALKALINE PHOSPHATASE 53 U/L (45-117)
[2018-03-12 06:13] LABS: BASOPHILS % (AUTO) 0 % (0-1); EOSINOPHILS % (AUTO) 0 % (1-7); LYMPHOCYTES # (AUTO) 0.23 x10^3/uL (1-3.4); LYMPHOCYTES % (AUTO) 2 % (22-44); MD SCAN; MONOCYTES # (AUTO) 0.13 x10^3/uL (0.2-0.8); MONOCYTES % (AUTO) 1 % (2-9); NEUTROPHILS # (AUTO) 9.68 x10^3/uL (1.8-6.8); NEUTROPHILS % (AUTO) 96 % (42-75)
[2018-03-12 07:45] VITALS: BP 109/68
[2018-03-12] MEDS ORDERED: ALUMINUM HYDROXIDE 64 MG/ML ORAL.SUSP PO SCH (08:00)
[2018-03-12] MEDS: CARVEDILOL 25 MG TABLET PO SCH ×2 (08:06→21:11)
[2018-03-12] MEDS: MULTIVITAMIN 1 TABLET PO SCH (08:06)
[2018-03-12] MEDS: INSULIN LISPRO 100 UNITS/ML, PEN SQ-INSULIN SCH ×4 (08:06→21:10)
[2018-03-12] MEDS: GABAPENTIN 300 MG CAPSULE PO SCH (08:07)
[2018-03-12] MEDS: ASPIRIN 81 MG TABLET EC PO SCH (08:07)
[2018-03-12] MEDS: PREGABALIN 25 MG CAPSULE PO SCH (08:07)
[2018-03-12] MEDS: ALLOPURINOL 300 MG TABLET PO SCH (08:07)
[2018-03-12] MEDS: FAMOTIDINE 20 MG TABLET PO SCH ×2 (08:07→21:11)
[2018-03-12] MEDS: AMLODIPINE 5 MG TABLET PO SCH (08:07)
[2018-03-12] MEDS: CALCITRIOL 0.25 MCG CAPSULE PO SCH (08:07)
[2018-03-12] MEDS: LINAGLIPTIN 5 MG TAB PO SCH (08:07)
[2018-03-12 10:09] VITALS: BP 120/71
[2018-03-12] MEDS: ALUMINUM HYDROXIDE 64 MG/ML ORAL.SUSP PO SCH ×2 (11:30→16:00)
[2018-03-12 14:54] VITALS: BP 118/65
[2018-03-12 20:53] VITALS: BP 119/68
[2018-03-12] MEDS: INSULIN GLARGINE 100 UNITS/ML, PEN SQ-INSULIN SCH (21:10)
[2018-03-12] MEDS: ATORVASTATIN 40 MG TABLET PO SCH (21:10)
[2018-03-12 21:14] VITALS: BP 105/58
[2018-03-12] MEDS ORDERED: GENTAMICIN CRM 0.1%, 30GM TP SCH (22:30)
[2018-03-12] MEDS: TRAZODONE 50MG TABLET PO PRN (23:25)
[2018-03-13] VITALS (15 sets, daily range): BP systolic 101–136; BP diastolic 52–81
[2018-03-13] MEDS: HYDROcodone/APAP 5/325 TABLET PO PRN ×2 (03:07→13:30)
[2018-03-13] MEDS: INSULIN LISPRO 100 UNITS/ML, PEN SQ-INSULIN SCH ×4 (07:00→21:02)
[2018-03-13] MEDS: ALUMINUM HYDROXIDE 64 MG/ML ORAL.SUSP PO SCH ×3 (08:00→16:37)
[2018-03-13] MEDS ORDERED: GENTAMICIN OINT 0.1% 15GM TP SCH (09:00)
[2018-03-13] MEDS: ALLOPURINOL 300 MG TABLET PO SCH (09:58)
[2018-03-13] MEDS: AMLODIPINE 5 MG TABLET PO SCH (09:58)
[2018-03-13] MEDS: PREGABALIN 25 MG CAPSULE PO SCH (09:58)
[2018-03-13] MEDS: LINAGLIPTIN 5 MG TAB PO SCH (09:58)
[2018-03-13] MEDS: MULTIVITAMIN 1 TABLET PO SCH (09:58)
[2018-03-13] MEDS: CARVEDILOL 25 MG TABLET PO SCH ×2 (09:58→21:00)
[2018-03-13] MEDS: FAMOTIDINE 20 MG TABLET PO SCH ×2 (09:59→21:00)
[2018-03-13] MEDS: ASPIRIN 81 MG TABLET EC PO SCH (09:59)
[2018-03-13] MEDS: ATORVASTATIN 40 MG TABLET PO SCH (21:00)
[2018-03-13] MEDS: TRAZODONE 50MG TABLET PO PRN (21:00)
[2018-03-13] MEDS: INSULIN GLARGINE 100 UNITS/ML, PEN SQ-INSULIN SCH (21:01)
[2018-03-14 01:40] LABS: CLOSTRIDIUM DIFFICILE ANTIGEN NEGATIVE; CLOSTRIDIUM DIFFICILE TOXIN NEGATIVE (Negative)
[2018-03-14 02:29] VITALS: BP 115/65
[2018-03-14 06:29] VITALS: BP 132/76
[2018-03-14] MEDS: INSULIN LISPRO 100 UNITS/ML, PEN SQ-INSULIN SCH ×2 (07:00→11:00)
[2018-03-14] MEDS: ALUMINUM HYDROXIDE 64 MG/ML ORAL.SUSP PO SCH ×2 (07:38→12:00)
[2018-03-14] MEDS: MULTIVITAMIN 1 TABLET PO SCH (09:09)
[2018-03-14] MEDS: PREGABALIN 25 MG CAPSULE PO SCH (09:09)
[2018-03-14] MEDS: AMLODIPINE 5 MG TABLET PO SCH (09:09)
[2018-03-14] MEDS: ALLOPURINOL 300 MG TABLET PO SCH (09:09)
[2018-03-14] MEDS: CARVEDILOL 25 MG TABLET PO SCH (09:09)
[2018-03-14] MEDS: CALCITRIOL 0.25 MCG CAPSULE PO SCH (09:10)
[2018-03-14] MEDS: FAMOTIDINE 20 MG TABLET PO SCH (09:10)
[2018-03-14] MEDS: LINAGLIPTIN 5 MG TAB PO SCH (09:10)
[2018-03-14] MEDS: ASPIRIN 81 MG TABLET EC PO SCH (09:10)
== END 2018-03-14 15:25 | disposition home or self-care (01) | DRG 915 ==
LOC: ED 15:25 → SUATTDRO 18:33 → EDIP 18:37 → 4WST 20:13 → DCLOUNGE 03-14 15:15
PROVIDERS: ADMIT Hospitalist; ATTEND Hospitalist
PROC: 3E1M39Z Irrigation of Peritoneal Cavity using Dialysate, Percutaneous Approach (ICD-10-PCS; principal; 2018-03-11)
DX: T78.3XXA Angioneurotic edema, initial encounter (principal); E43 Unspecified severe protein-calorie malnutrition; N18.6 End stage renal disease; G45.9 Transient cerebral ischemic attack, unspecified; N25.81 Secondary hyperparathyroidism of renal origin; Z68.41 Body mass index [BMI] 40.0-44.9, adult; I13.2 Hypertensive heart and chronic kidney disease with heart failure and with stage 5 chronic kidney disease, or end stage renal disease; N25.0 Renal osteodystrophy; E83.39 Other disorders of phosphorus metabolism; D63.1 Anemia in chronic kidney disease; I50.9 Heart failure, unspecified; E11.22 Type 2 diabetes mellitus with diabetic chronic kidney disease; E11.65 Type 2 diabetes mellitus with hyperglycemia; E78.5 Hyperlipidemia, unspecified; E83.51 Hypocalcemia; I25.5 Ischemic cardiomyopathy; E66.01 Morbid (severe) obesity due to excess calories; I48.91 Unspecified atrial fibrillation; K21.9 Gastro-esophageal reflux disease without esophagitis; M10.9 Gout, unspecified; X58.XXXA Exposure to other specified factors, initial encounter; Z79.82 Long term (current) use of aspirin; R45.86 Emotional lability; S91.302A Unspecified open wound, left foot, initial encounter; Z99.2 Dependence on renal dialysis; Y93.89 Activity, other specified; Y92.89 Other specified places as the place of occurrence of the external cause; Z79.4 Long term (current) use of insulin; Y99.8 Other external cause status; Z79.899 Other long term (current) drug therapy
CPT/HCPCS: 36415; 70450; 80048; 80053; 82040; 82962; 83735; 84100; 84443; 85025; 86704; 86706; 87324; 87340; 93005; 93306; 93880; 96374; 96375; Q0162; 92523-GN; J1200; J1815; J2930; S0028

== ENCOUNTER → 2018-03-15 | Outpatient (CLI) | payer MEDICARE ==
[~2018-03-15] MED LIST changes: +NAPR375T5 PO
== END | disposition home or self-care (01) ==
LOC: CVU 12:48
PROVIDERS: ATTEND Family Medicine
DX: I70.202 Unspecified atherosclerosis of native arteries of extremities, left leg (principal); I10 Essential (primary) hypertension; E11.621 Type 2 diabetes mellitus with foot ulcer; L97.529 Non-pressure chronic ulcer of other part of left foot with unspecified severity
CPT/HCPCS: 93922; 93925; 93970

== ENCOUNTER → 2018-03-15 | Outpatient (CLI) | payer MEDICARE ==
[~2018-03-15] MED LIST changes: +ALLO100T30 PO; +ASPI-621 PO; +CARV12.543 PO
== END | disposition home or self-care (01) ==
LOC: WOUND 11:35
PROVIDERS: ATTEND Podiatrist Foot & Ankle Surgery
DX: E11.621 Type 2 diabetes mellitus with foot ulcer (principal); L97.511 Non-pressure chronic ulcer of other part of right foot limited to breakdown of skin; L97.524 Non-pressure chronic ulcer of other part of left foot with necrosis of bone; E11.22 Type 2 diabetes mellitus with diabetic chronic kidney disease; I13.0 Hypertensive heart and chronic kidney disease with heart failure and stage 1 through stage 4 chronic kidney disease, or unspecified chronic kidney disease; N18.6 End stage renal disease; I50.9 Heart failure, unspecified; E11.65 Type 2 diabetes mellitus with hyperglycemia; E11.40 Type 2 diabetes mellitus with diabetic neuropathy, unspecified; E66.9 Obesity, unspecified; E78.5 Hyperlipidemia, unspecified; I48.91 Unspecified atrial fibrillation; N25.81 Secondary hyperparathyroidism of renal origin; K21.9 Gastro-esophageal reflux disease without esophagitis; M10.9 Gout, unspecified; F32.9 Major depressive disorder, single episode, unspecified; Z86.73 Personal history of transient ischemic attack (TIA), and cerebral infarction without residual deficits; Z99.2 Dependence on renal dialysis; Z79.4 Long term (current) use of insulin; Z79.82 Long term (current) use of aspirin; Z79.899 Other long term (current) drug therapy; Z68.41 Body mass index [BMI] 40.0-44.9, adult
CPT/HCPCS: 11043

== ENCOUNTER → 2018-03-22 | Outpatient (CLI) | payer MEDICARE | END | disposition home or self-care (01) | LOC: WOUND 11:00 | PROVIDERS: ATTEND Podiatrist Foot & Ankle Surgery | DX: E11.621 Type 2 diabetes mellitus with foot ulcer (principal); L97.514 Non-pressure chronic ulcer of other part of right foot with necrosis of bone; E66.01 Morbid (severe) obesity due to excess calories; E11.40 Type 2 diabetes mellitus with diabetic neuropathy, unspecified; E11.22 Type 2 diabetes mellitus with diabetic chronic kidney disease; I13.2 Hypertensive heart and chronic kidney disease with heart failure and with stage 5 chronic kidney disease, or end stage renal disease; N18.6 End stage renal disease; I50.30 Unspecified diastolic (congestive) heart failure; K21.9 Gastro-esophageal reflux disease without esophagitis; E78.5 Hyperlipidemia, unspecified; F32.9 Major depressive disorder, single episode, unspecified; I48.91 Unspecified atrial fibrillation; I89.0 Lymphedema, not elsewhere classified; G89.29 Other chronic pain; Z86.73 Personal history of transient ischemic attack (TIA), and cerebral infarction without residual deficits; Z68.41 Body mass index [BMI] 40.0-44.9, adult; Z99.2 Dependence on renal dialysis; Z79.4 Long term (current) use of insulin | CPT/HCPCS: 11042 ==

== ENCOUNTER → 2018-03-29 | Outpatient (CLI) | payer MEDICARE | END | disposition home or self-care (01) | LOC: WOUND 11:03 | PROVIDERS: ATTEND Podiatrist Foot & Ankle Surgery | DX: E11.621 Type 2 diabetes mellitus with foot ulcer (principal); L97.514 Non-pressure chronic ulcer of other part of right foot with necrosis of bone; E66.01 Morbid (severe) obesity due to excess calories; K21.9 Gastro-esophageal reflux disease without esophagitis; E78.5 Hyperlipidemia, unspecified; E11.22 Type 2 diabetes mellitus with diabetic chronic kidney disease; I13.2 Hypertensive heart and chronic kidney disease with heart failure and with stage 5 chronic kidney disease, or end stage renal disease; N18.6 End stage renal disease; I50.30 Unspecified diastolic (congestive) heart failure; I89.0 Lymphedema, not elsewhere classified; G89.29 Other chronic pain; I48.91 Unspecified atrial fibrillation; E11.40 Type 2 diabetes mellitus with diabetic neuropathy, unspecified; Z86.73 Personal history of transient ischemic attack (TIA), and cerebral infarction without residual deficits; Z79.4 Long term (current) use of insulin; Z99.2 Dependence on renal dialysis; Z68.41 Body mass index [BMI] 40.0-44.9, adult | CPT/HCPCS: 11042 ==

== ENCOUNTER → 2018-04-05 | Outpatient (CLI) | payer MEDICARE | END | disposition home or self-care (01) | LOC: WOUND 14:27 | PROVIDERS: ATTEND Podiatrist Foot & Ankle Surgery | DX: E11.621 Type 2 diabetes mellitus with foot ulcer (principal); L97.514 Non-pressure chronic ulcer of other part of right foot with necrosis of bone; E66.01 Morbid (severe) obesity due to excess calories; E11.42 Type 2 diabetes mellitus with diabetic polyneuropathy; K21.9 Gastro-esophageal reflux disease without esophagitis; E78.5 Hyperlipidemia, unspecified; I89.0 Lymphedema, not elsewhere classified; G89.29 Other chronic pain; I48.91 Unspecified atrial fibrillation; F32.9 Major depressive disorder, single episode, unspecified; E11.22 Type 2 diabetes mellitus with diabetic chronic kidney disease; I13.2 Hypertensive heart and chronic kidney disease with heart failure and with stage 5 chronic kidney disease, or end stage renal disease; N18.6 End stage renal disease; I50.30 Unspecified diastolic (congestive) heart failure; E11.40 Type 2 diabetes mellitus with diabetic neuropathy, unspecified; Z86.73 Personal history of transient ischemic attack (TIA), and cerebral infarction without residual deficits; Z99.2 Dependence on renal dialysis; Z68.41 Body mass index [BMI] 40.0-44.9, adult; Z79.4 Long term (current) use of insulin | CPT/HCPCS: 11044; 87070; 87075; 87077; 87147; 87176; 87186; 87205 ==

== ENCOUNTER → 2018-04-12 | Outpatient (CLI) | payer MEDICARE | END | disposition home or self-care (01) | LOC: RAD 16:13 | PROVIDERS: ATTEND Podiatrist Foot & Ankle Surgery | DX: E11.621 Type 2 diabetes mellitus with foot ulcer (principal); L97.324 Non-pressure chronic ulcer of left ankle with necrosis of bone; I12.0 Hypertensive chronic kidney disease with stage 5 chronic kidney disease or end stage renal disease; E11.22 Type 2 diabetes mellitus with diabetic chronic kidney disease; N18.5 Chronic kidney disease, stage 5; E11.42 Type 2 diabetes mellitus with diabetic polyneuropathy ==

== ENCOUNTER → 2018-04-12 | Outpatient (CLI) | payer MEDICARE | END | disposition home or self-care (01) | LOC: WOUND 14:24 | PROVIDERS: ATTEND Podiatrist Foot & Ankle Surgery | DX: E11.621 Type 2 diabetes mellitus with foot ulcer (principal); L97.514 Non-pressure chronic ulcer of other part of right foot with necrosis of bone; E11.69 Type 2 diabetes mellitus with other specified complication; M86.171 Other acute osteomyelitis, right ankle and foot; E66.01 Morbid (severe) obesity due to excess calories; E11.22 Type 2 diabetes mellitus with diabetic chronic kidney disease; I13.2 Hypertensive heart and chronic kidney disease with heart failure and with stage 5 chronic kidney disease, or end stage renal disease; N18.6 End stage renal disease; I50.30 Unspecified diastolic (congestive) heart failure; E11.42 Type 2 diabetes mellitus with diabetic polyneuropathy; K21.9 Gastro-esophageal reflux disease without esophagitis; E78.5 Hyperlipidemia, unspecified; I89.0 Lymphedema, not elsewhere classified; F32.9 Major depressive disorder, single episode, unspecified; G89.29 Other chronic pain; I48.91 Unspecified atrial fibrillation; N25.81 Secondary hyperparathyroidism of renal origin; E66.9 Obesity, unspecified; Z86.73 Personal history of transient ischemic attack (TIA), and cerebral infarction without residual deficits; Z99.2 Dependence on renal dialysis; Z79.4 Long term (current) use of insulin; Z68.41 Body mass index [BMI] 40.0-44.9, adult | CPT/HCPCS: 11042; 87070; 87075; 87077; 87176; 87186; 87205 ==

== ENCOUNTER → 2018-04-19 | Outpatient (CLI) | payer MEDICARE ==
[~2018-04-19] MED LIST changes: +TRAZ-136 PO; -TRAZ50TA18 PO
== END | disposition home or self-care (01) ==
LOC: WOUND 14:19
PROVIDERS: ATTEND Podiatrist Foot & Ankle Surgery
DX: E11.621 Type 2 diabetes mellitus with foot ulcer (principal); L97.514 Non-pressure chronic ulcer of other part of right foot with necrosis of bone; E11.69 Type 2 diabetes mellitus with other specified complication; M86.171 Other acute osteomyelitis, right ankle and foot; E66.01 Morbid (severe) obesity due to excess calories; E11.22 Type 2 diabetes mellitus with diabetic chronic kidney disease; I13.2 Hypertensive heart and chronic kidney disease with heart failure and with stage 5 chronic kidney disease, or end stage renal disease; N18.6 End stage renal disease; I50.30 Unspecified diastolic (congestive) heart failure; E11.42 Type 2 diabetes mellitus with diabetic polyneuropathy; K21.9 Gastro-esophageal reflux disease without esophagitis; E78.5 Hyperlipidemia, unspecified; I89.0 Lymphedema, not elsewhere classified; F32.9 Major depressive disorder, single episode, unspecified; G89.29 Other chronic pain; I48.91 Unspecified atrial fibrillation; N25.81 Secondary hyperparathyroidism of renal origin; E66.9 Obesity, unspecified; Z86.73 Personal history of transient ischemic attack (TIA), and cerebral infarction without residual deficits; Z99.2 Dependence on renal dialysis; Z79.4 Long term (current) use of insulin; Z68.41 Body mass index [BMI] 40.0-44.9, adult
CPT/HCPCS: 99214

== ENCOUNTER → 2018-04-26 | Outpatient (CLI) | payer MEDICARE ==
[~2018-04-26] MED LIST changes: +BUPIVACAINE/PF 0.5% ONE; +EPINEPHRINE 1 MG/ML, 1ML ONE
== END | disposition home or self-care (01) ==
LOC: WOUND 16:07
PROVIDERS: ATTEND Podiatrist Foot & Ankle Surgery
DX: E11.621 Type 2 diabetes mellitus with foot ulcer (principal); L97.513 Non-pressure chronic ulcer of other part of right foot with necrosis of muscle; E11.69 Type 2 diabetes mellitus with other specified complication; M86.171 Other acute osteomyelitis, right ankle and foot; E66.01 Morbid (severe) obesity due to excess calories; E11.22 Type 2 diabetes mellitus with diabetic chronic kidney disease; I13.2 Hypertensive heart and chronic kidney disease with heart failure and with stage 5 chronic kidney disease, or end stage renal disease; N18.6 End stage renal disease; I50.30 Unspecified diastolic (congestive) heart failure; N25.81 Secondary hyperparathyroidism of renal origin; K21.9 Gastro-esophageal reflux disease without esophagitis; E78.5 Hyperlipidemia, unspecified; I89.0 Lymphedema, not elsewhere classified; F32.9 Major depressive disorder, single episode, unspecified; G89.29 Other chronic pain; E11.42 Type 2 diabetes mellitus with diabetic polyneuropathy; I48.91 Unspecified atrial fibrillation; Z79.82 Long term (current) use of aspirin; Z79.899 Other long term (current) drug therapy; Z86.73 Personal history of transient ischemic attack (TIA), and cerebral infarction without residual deficits; Z79.4 Long term (current) use of insulin; Z99.2 Dependence on renal dialysis; Z68.41 Body mass index [BMI] 40.0-44.9, adult
CPT/HCPCS: 11042

== ENCOUNTER 2018-04-30 12:25 | Inpatient (IN) | payer MEDICARE ==
[~2018-04-30] VITALS: Ht 175.3 cm; Wt 136.0 kg
[~2018-04-30 12:25] MED LIST changes: -AMLO5TAB2 PO; +AMLO5TAB7 PO; -BUPIVACAINE/PF 0.5% ONE; -EPINEPHRINE 1 MG/ML, 1ML ONE; -LOSA25TA5 PO; +LOSA25TA6 PO
[2018-04-30 13:45] VITALS: BP 147/81
[2018-04-30] MEDS ORDERED: LIDOCAINE 4% CREAM 5GM TUBE TP ONE (15:00)
[2018-04-30] MEDS ORDERED: ONDANSETRON 2MG/ML, 2ML IVPush PRN (17:00)
[2018-04-30] MEDS ORDERED: ONDANSETRON ODT 4 MG PO PRN (17:00)
[2018-04-30] MEDS ORDERED: LABETALOL 5MG/ML, 20ML IVPush PRN (17:00)
[2018-04-30 17:08] VITALS: BP 171/91
[2018-04-30] MEDS: HEPARIN 5,000 UNITS/ML, 1ML SQ SCH (17:20)
[2018-04-30] MEDS: HYDROcodone/APAP 5/325 TABLET PO PRN ×2 (17:20→22:55)
[2018-04-30 17:26] LABS: BASOPHILS # (AUTO) 0.01 x10^3/uL (0-0.1); BASOPHILS % (AUTO) 0 % (0-1); EOSINOPHILS # (AUTO) 0.29 x10^3/uL (0-0.4); EOSINOPHILS % (AUTO) 3 % (1-7); LYMPHOCYTES # (AUTO) 0.89 x10^3/uL (1-3.4); LYMPHOCYTES % (AUTO) 10 % (22-44); MD NO; MEAN CORPUSCULAR HGB CONC 33.2 g/dL (33.2-36.2); MEAN CORPUSCULAR VOLUME 96.4 fL (81-97); MEAN PLATELET VOLUME 7.4 fL (7.4-10.4); MONOCYTES # (AUTO) 0.36 x10^3/uL (0.2-0.8); MONOCYTES % (AUTO) 4 % (2-9); NEUTROPHILS # (AUTO) 7.06 x10^3/uL (1.8-6.8); NEUTROPHILS % (AUTO) 82 % (42-75); PLATELET COUNT 293 x10^3/uL (130-400); RED BLOOD COUNT 3.35 x10^6/uL (4.38-5.82); RED CELL DISTRIBUTION WIDTH 14.4 % (9.4-14.8)
[2018-04-30] MEDS ORDERED: VANCOMYCIN PER PHARMACY MC PRN (17:30)
[2018-04-30] MEDS ORDERED: AMPICILLIN/SULBACTAM 3 GM in SODIUM CHLORIDE 0.9% 100 ML IV SCH (17:30)
[2018-04-30] MEDS ORDERED: PHARMACOKINETIC MONITORING MC PRN (17:30)
[2018-04-30] MEDS ORDERED: PHARMACY MAY ADJ FOR RENAL FX MC PRN (17:30)
[2018-04-30] MEDS ORDERED: PHARMACOKINETIC CONSULTATION MC ONE (17:30)
[2018-04-30] MEDS ORDERED: CEFAZOLIN PMX 2GM/50ML 50 ML IV SCH (17:30)
[2018-04-30 17:34] LABS: HCT (SEDRATE) 32.3 % (39.2-51.8)
[2018-04-30 17:39] LABS: ALANINE AMINOTRANSFERASE 15 U/L (12-78); ANION GAP 17 mmol/L (5-15); CALCIUM 7.8 mg/dL (8.5-10.1); CHLORIDE 99 mmol/L (98-107)
[2018-04-30 17:42] LABS: INTERNATIONAL NORMALIZED RATIO 1.05 (0.93-1.1); PROTHROMBIN TIME 10.8 Seconds (9.6-11.5)
[2018-04-30] MEDS: GABAPENTIN 100 MG CAPSULE PO SCH ×2 (17:42→20:29)
[2018-04-30] MEDS: CEFAZOLIN PMX 1GM/50ML 50 ML IV SCH (17:47)
[2018-04-30 17:49] LABS: ALKALINE PHOSPHATASE 66 U/L (45-117); BILIRUBIN,TOTAL 0.4 mg/dL (0.2-1.0); FREE T4 (FREE THYROXINE) 0.85 ng/dL (0.76-1.46); TOTAL PROTEIN 7.4 g/dL (6.4-8.2)
[2018-04-30] MEDS ORDERED: VANCOMYCIN 2,000 MG in SODIUM CHLORIDE 0.9% 500 ML IV ONE (18:00)
[2018-04-30] MEDS: CALCITRIOL 0.5 MCG CAPSULE PO SCH (20:28)
[2018-04-30] MEDS: TRAZODONE 50MG TABLET PO PRN (20:28)
[2018-04-30] MEDS: ATORVASTATIN 40 MG TABLET PO SCH (20:28)
[2018-04-30] MEDS: CARVEDILOL 12.5 MG TABLET PO SCH (20:28)
[2018-04-30] MEDS: INSULIN LISPRO 100 UNITS/ML, PEN SQ-INSULIN SCH (20:29)
[2018-04-30 20:34] VITALS: BP 171/121
[2018-05-01 01:48] VITALS: BP 102/63
[2018-05-01] MEDS: HEPARIN 5,000 UNITS/ML, 1ML SQ SCH ×3 (03:01→19:00)
[2018-05-01] MEDS: HYDROcodone/APAP 5/325 TABLET PO PRN ×3 (03:01→15:15)
[2018-05-01 04:56] LABS: BASOPHILS # (AUTO) 0.06 x10^3/uL (0-0.1); BASOPHILS % (AUTO) 1 % (0-1); EOSINOPHILS # (AUTO) 0.26 x10^3/uL (0-0.4); EOSINOPHILS % (AUTO) 3 % (1-7); LYMPHOCYTES # (AUTO) 0.83 x10^3/uL (1-3.4); LYMPHOCYTES % (AUTO) 11 % (22-44); MD NO; MEAN CORPUSCULAR HEMOGLOBIN 32.5 pg (27.5-34.5); MEAN CORPUSCULAR HGB CONC 33.5 g/dL (33.2-36.2); MEAN CORPUSCULAR VOLUME 96.8 fL (81-97); MEAN PLATELET VOLUME 7.7 fL (7.4-10.4); MONOCYTES # (AUTO) 0.51 x10^3/uL (0.2-0.8); MONOCYTES % (AUTO) 6 % (2-9); NEUTROPHILS % (AUTO) 79 % (42-75); PLATELET COUNT 283 x10^3/uL (130-400); RED BLOOD COUNT 3.06 x10^6/uL (4.38-5.82); RED CELL DISTRIBUTION WIDTH 14.9 % (9.4-14.8)
[2018-05-01 05:11] LABS: ALBUMIN 2.7 g/dL (3.4-5.0); ANION GAP 15 mmol/L (5-15); CALCIUM 7.8 mg/dL (8.5-10.1); CHLORIDE 99 mmol/L (98-107)
[2018-05-01] MEDS: GABAPENTIN 100 MG CAPSULE PO SCH ×4 (05:24→21:38)
[2018-05-01 05:27] LABS: ALANINE AMINOTRANSFERASE 14 U/L (12-78); ALKALINE PHOSPHATASE 64 U/L (45-117); BILIRUBIN,TOTAL 0.3 mg/dL (0.2-1.0); CHOL/HDL RATIO 6.5; CHOLESTEROL, TOTAL 188 mg/dL (140-239); HDL CHOL % 15 % (26-37); HDL CHOLESTEROL (DIRECT) 29 mg/dL (40-60); LDL CHOLESTEROL,CALCULATED 123 mg/dL (54-169); LDL/HDL RATIO 4.2 (0.5-3.0); TOTAL PROTEIN 6.8 g/dL (6.4-8.2); TRIGLYCERIDES 182 mg/dL (50-200); VLDL CHOLESTEROL 36 mg/dL (0-25)
[2018-05-01 06:38] VITALS: BP 135/69
[2018-05-01] MEDS: MULTIVITAMIN 1 TABLET PO SCH (07:57)
[2018-05-01] MEDS: CARVEDILOL 12.5 MG TABLET PO SCH ×2 (07:57→21:38)
[2018-05-01] MEDS: LINAGLIPTIN 5 MG TAB PO SCH (07:57)
[2018-05-01] MEDS: ALLOPURINOL 100 MG TABLET PO SCH (07:57)
[2018-05-01] MEDS: AMLODIPINE 5 MG TABLET PO SCH (07:57)
[2018-05-01] MEDS: CALCITRIOL 0.5 MCG CAPSULE PO SCH ×2 (07:57→21:37)
[2018-05-01] MEDS: INSULIN LISPRO 100 UNITS/ML, PEN SQ-INSULIN SCH ×4 (07:58→21:00)
[2018-05-01 12:09] VITALS: BP 103/61
[2018-05-01] MEDS: CEFAZOLIN PMX 1GM/50ML 50 ML IV SCH (16:12)
[2018-05-01] MEDS ORDERED: FENTANYL PF 250 MCG/5ML ONE (17:49)
[2018-05-01] MEDS ORDERED: MIDAZOLAM 1 MG/ML, 2ML ONE (17:49)
[2018-05-01] MEDS ORDERED: LIDOCAINE-MPF 2% ,5ML ONE (17:50)
[2018-05-01] MEDS ORDERED: PROPOFOL 10 MG/ML, 20ML ONE (17:50)
[2018-05-01] MEDS ORDERED: BUPIVACAINE/PF 0.5% ONE (17:58)
[2018-05-01] MEDS ORDERED: LIDOCAINE/PF 1%, 30ML ONE (17:58)
[2018-05-01] MEDS ORDERED: PHENYLEPHRINE 10 MG/ML ONE (18:27)
[2018-05-01] MEDS ORDERED: GLYCOPYRROLATE 0.2MG/1ML, 5ML ONE (18:27)
[2018-05-01] MEDS ORDERED: ONDANSETRON 2MG/ML, 2ML ONE ×3 (18:27→19:12)
[2018-05-01] MEDS ORDERED: BUPIVACAINE/PF-EPI 0.5% 1:200K IM ONE (18:41)
[2018-05-01] MEDS ORDERED: LIDOCAINE 1%, 20ML IM ONE (18:42)
[2018-05-01] MEDS ORDERED: PROMETHAZINE 25 MG/ML, 1ML IV PRN (19:30)
[2018-05-01] MEDS ORDERED: HYDROmorphone 1 MG/ML, 1ML IV PRN (19:30)
[2018-05-01] MEDS ORDERED: LABETALOL 5MG/ML, 20ML IV PRN (19:30)
[2018-05-01] MEDS ORDERED: MEPERIDINE/PF 25MG/0.5ML IVPush PRN (19:30)
[2018-05-01] MEDS ORDERED: ACETAMINOPHEN 325 MG TABLET PO PRN (19:30)
[2018-05-01] MEDS ORDERED: OXYcodone 5 MG/5 ML ORAL.SOL UDC PO PRN (19:30)
[2018-05-01] MEDS ORDERED: HALOPERIDOL 5 MG/ML IV PRN (19:30)
[2018-05-01] MEDS ORDERED: FENTANYL PF 100 MCG/2ML IV PRN (19:30)
[2018-05-01] MEDS ORDERED: OXYcodone 5 MG/5 ML ORAL.SOL UDC ONE (19:46)
[2018-05-01 21:35] VITALS: BP 131/71
[2018-05-01] MEDS: AMOXICILLIN/CLAV 500-125MG TABLET PO SCH (21:37)
[2018-05-01] MEDS: ATORVASTATIN 40 MG TABLET PO SCH (21:37)
[2018-05-01] MEDS: OXYcodone/APAP 7.5/325MG TABLET PO PRN (21:38)
[2018-05-01] MEDS: TRAZODONE 50MG TABLET PO PRN (21:38)
[2018-05-02 02:55] VITALS: BP 133/66
[2018-05-02] MEDS: HEPARIN 5,000 UNITS/ML, 1ML SQ SCH ×3 (03:16→20:47)
[2018-05-02] MEDS: GABAPENTIN 100 MG CAPSULE PO SCH ×4 (05:21→20:22)
[2018-05-02 05:37] LABS: BASOPHILS # (AUTO) 0.04 x10^3/uL (0-0.1); BASOPHILS % (AUTO) 0 % (0-1); EOSINOPHILS # (AUTO) 0.18 x10^3/uL (0-0.4); EOSINOPHILS % (AUTO) 2 % (1-7); LYMPHOCYTES # (AUTO) 0.56 x10^3/uL (1-3.4); LYMPHOCYTES % (AUTO) 7 % (22-44); MD NO; MEAN CORPUSCULAR HEMOGLOBIN 32.6 pg (27.5-34.5); MEAN CORPUSCULAR HGB CONC 33.5 g/dL (33.2-36.2); MEAN CORPUSCULAR VOLUME 97.3 fL (81-97); MEAN PLATELET VOLUME 7.4 fL (7.4-10.4); MONOCYTES # (AUTO) 0.42 x10^3/uL (0.2-0.8); MONOCYTES % (AUTO) 5 % (2-9); NEUTROPHILS # (AUTO) 6.97 x10^3/uL (1.8-6.8); NEUTROPHILS % (AUTO) 85 % (42-75); PLATELET COUNT 275 x10^3/uL (130-400); RED BLOOD COUNT 3.06 x10^6/uL (4.38-5.82)
[2018-05-02 05:45] LABS: ANION GAP 16 mmol/L (5-15); CALCIUM 7.8 mg/dL (8.5-10.1); CHLORIDE 99 mmol/L (98-107)
[2018-05-02] MEDS: INSULIN LISPRO 100 UNITS/ML, PEN SQ-INSULIN SCH ×4 (07:00→21:00)
[2018-05-02 07:29] VITALS: BP 127/78
[2018-05-02] MEDS: OXYcodone/APAP 7.5/325MG TABLET PO PRN ×2 (07:46→20:22)
[2018-05-02] MEDS: CARVEDILOL 12.5 MG TABLET PO SCH ×2 (08:48→20:48)
[2018-05-02] MEDS: AMOXICILLIN/CLAV 500-125MG TABLET PO SCH ×3 (08:48→20:48)
[2018-05-02] MEDS: AMLODIPINE 5 MG TABLET PO SCH (08:49)
[2018-05-02] MEDS: LINAGLIPTIN 5 MG TAB PO SCH (08:49)
[2018-05-02] MEDS: ALLOPURINOL 100 MG TABLET PO SCH (08:49)
[2018-05-02] MEDS: MULTIVITAMIN 1 TABLET PO SCH (08:50)
[2018-05-02] MEDS: CALCITRIOL 0.5 MCG CAPSULE PO SCH ×2 (08:50→20:48)
[2018-05-02] MEDS: HYDROcodone/APAP 5/325 TABLET PO PRN ×2 (11:37→16:29)
[2018-05-02 12:28] VITALS: BP 123/75
[2018-05-02] MEDS: CEFAZOLIN PMX 1GM/50ML 50 ML IV SCH (16:15)
[2018-05-02 19:44] VITALS: BP 148/90
[2018-05-02] MEDS: ATORVASTATIN 40 MG TABLET PO SCH (20:48)
[2018-05-03] MEDS: TRAZODONE 50MG TABLET PO PRN (01:28)
[2018-05-03 02:52] VITALS: BP 110/70
[2018-05-03] MEDS: HEPARIN 5,000 UNITS/ML, 1ML SQ SCH ×3 (04:30→19:57)
[2018-05-03] MEDS: GABAPENTIN 100 MG CAPSULE PO SCH ×4 (05:56→21:51)
[2018-05-03 06:00] LABS: BASOPHILS # (AUTO) 0.03 x10^3/uL (0-0.1); BASOPHILS % (AUTO) 0 % (0-1); EOSINOPHILS # (AUTO) 0.31 x10^3/uL (0-0.4); EOSINOPHILS % (AUTO) 4 % (1-7); LYMPHOCYTES # (AUTO) 0.68 x10^3/uL (1-3.4); LYMPHOCYTES % (AUTO) 8 % (22-44); MD NO; MEAN CORPUSCULAR HEMOGLOBIN 32.5 pg (27.5-34.5); MEAN CORPUSCULAR HGB CONC 33.4 g/dL (33.2-36.2); MEAN CORPUSCULAR VOLUME 97.2 fL (81-97); MEAN PLATELET VOLUME 7.3 fL (7.4-10.4); MONOCYTES # (AUTO) 0.43 x10^3/uL (0.2-0.8); MONOCYTES % (AUTO) 5 % (2-9); NEUTROPHILS # (AUTO) 7.27 x10^3/uL (1.8-6.8); NEUTROPHILS % (AUTO) 83 % (42-75); PLATELET COUNT 259 x10^3/uL (130-400); RED BLOOD COUNT 2.99 x10^6/uL (4.38-5.82); RED CELL DISTRIBUTION WIDTH 14.7 % (9.4-14.8)
[2018-05-03 06:10] LABS: ANION GAP 15 mmol/L (5-15); CALCIUM 7.5 mg/dL (8.5-10.1); CHLORIDE 99 mmol/L (98-107)
[2018-05-03] MEDS: INSULIN LISPRO 100 UNITS/ML, PEN SQ-INSULIN SCH ×4 (07:00→21:00)
[2018-05-03 07:16] VITALS: BP 111/69
[2018-05-03] MEDS: MULTIVITAMIN 1 TABLET PO SCH (08:58)
[2018-05-03] MEDS: ALLOPURINOL 100 MG TABLET PO SCH (08:58)
[2018-05-03] MEDS: CARVEDILOL 12.5 MG TABLET PO SCH ×2 (08:58→21:51)
[2018-05-03] MEDS: AMLODIPINE 5 MG TABLET PO SCH (08:59)
[2018-05-03] MEDS: LINAGLIPTIN 5 MG TAB PO SCH (08:59)
[2018-05-03] MEDS: CALCITRIOL 0.5 MCG CAPSULE PO SCH ×2 (08:59→21:51)
[2018-05-03] MEDS: AMOXICILLIN/CLAV 500-125MG TABLET PO SCH (08:59)
[2018-05-03] MEDS: HYDROcodone/APAP 5/325 TABLET PO PRN ×2 (09:05→17:07)
[2018-05-03 12:08] VITALS: BP 110/66
[2018-05-03] MEDS: CEFAZOLIN PMX 1GM/50ML 50 ML IV SCH (16:50)
[2018-05-03] MEDS: CEFAZOLIN PMX 2GM/50ML 50 ML IV SCH (17:07)
[2018-05-03 21:12] VITALS: BP 142/83
[2018-05-03] MEDS: ATORVASTATIN 40 MG TABLET PO SCH (21:51)
[2018-05-03] MEDS ORDERED: LIDOCAINE/PRILOCAINE CRM W/TEG 5GM TP ONE ×2 (23:00)
[2018-05-04] MEDS: CEFAZOLIN PMX 2GM/50ML 50 ML IV SCH ×2 (00:32→08:48)
[2018-05-04 01:09] VITALS: BP 156/75
[2018-05-04] MEDS: HEPARIN 5,000 UNITS/ML, 1ML SQ SCH ×2 (03:38→11:44)
[2018-05-04] MEDS: GABAPENTIN 100 MG CAPSULE PO SCH ×2 (05:49→11:44)
[2018-05-04 06:50] VITALS: BP 118/60
[2018-05-04] MEDS: INSULIN LISPRO 100 UNITS/ML, PEN SQ-INSULIN SCH ×2 (07:00→11:00)
[2018-05-04] MEDS: CALCITRIOL 0.5 MCG CAPSULE PO SCH (08:48)
[2018-05-04] MEDS: LINAGLIPTIN 5 MG TAB PO SCH (08:48)
[2018-05-04] MEDS: MULTIVITAMIN 1 TABLET PO SCH (08:48)
[2018-05-04] MEDS: AMLODIPINE 5 MG TABLET PO SCH (08:48)
[2018-05-04] MEDS: CARVEDILOL 12.5 MG TABLET PO SCH (08:48)
[2018-05-04] MEDS: ALLOPURINOL 100 MG TABLET PO SCH (08:48)
[2018-05-04] MEDS: HYDROcodone/APAP 5/325 TABLET PO PRN (08:58)
[2018-05-04 12:40] VITALS: BP 130/82
[2018-05-04] MEDS ORDERED: AMOX1TAB64 PO (14:23)
== END 2018-05-04 15:55 | disposition home health service (06) | DRG 617 ==
LOC: 4NOR 12:25 → 4WST 15:30
PROVIDERS: ADMIT Hospitalist; ATTEND Hospitalist
PROC: 3E1M39Z Irrigation of Peritoneal Cavity using Dialysate, Percutaneous Approach (ICD-10-PCS; 2018-04-30)
PROC: 3E1M39Z Irrigation of Peritoneal Cavity using Dialysate, Percutaneous Approach (ICD-10-PCS; 2018-05-01)
PROC: 0Y6V0Z0 Detachment at Right 4th Toe, Complete, Open Approach (ICD-10-PCS; 2018-05-01)
PROC: 3E1M39Z Irrigation of Peritoneal Cavity using Dialysate, Percutaneous Approach (ICD-10-PCS; 2018-05-02)
PROC: 3E1M39Z Irrigation of Peritoneal Cavity using Dialysate, Percutaneous Approach (ICD-10-PCS; principal; 2018-05-03)
DX: E11.69 Type 2 diabetes mellitus with other specified complication (principal); E44.0 Moderate protein-calorie malnutrition; Z68.42 Body mass index [BMI] 45.0-49.9, adult; I13.2 Hypertensive heart and chronic kidney disease with heart failure and with stage 5 chronic kidney disease, or end stage renal disease; I50.22 Chronic systolic (congestive) heart failure; M86.8X7 Other osteomyelitis, ankle and foot; N18.6 End stage renal disease; N25.81 Secondary hyperparathyroidism of renal origin; D63.1 Anemia in chronic kidney disease; E11.22 Type 2 diabetes mellitus with diabetic chronic kidney disease; E11.621 Type 2 diabetes mellitus with foot ulcer; E78.5 Hyperlipidemia, unspecified; I27.20 Pulmonary hypertension, unspecified; I71.4 Abdominal aortic aneurysm, without rupture; K21.9 Gastro-esophageal reflux disease without esophagitis; L97.519 Non-pressure chronic ulcer of other part of right foot with unspecified severity; E66.01 Morbid (severe) obesity due to excess calories; M10.9 Gout, unspecified; N25.0 Renal osteodystrophy; E83.51 Hypocalcemia; Z66 Do not resuscitate; Z82.49 Family history of ischemic heart disease and other diseases of the circulatory system; Z83.3 Family history of diabetes mellitus; Z89.421 Acquired absence of other right toe(s); Z99.2 Dependence on renal dialysis
CPT/HCPCS: 36415; 71045; 80048; 80053; 80061; 82040; 82962; 83036; 83735; 84100; 84439; 84443; 85025; 85610; 85651; 85730; 86140; 86706; 87040; 87340; 88305; 88311; 93005; G0378; J0171; J0690; J1644; J2250; J2405; J2704; J3010; J3370; J3490; J2370; J7040

== ENCOUNTER → 2018-05-10 | Outpatient (CLI) | payer MEDICARE ==
[~2018-05-10] MED LIST changes: +AMLO5TAB2 PO; -AMLO5TAB7 PO; +LOSA25TA5 PO; -LOSA25TA6 PO
== END | disposition home or self-care (01) ==
LOC: WOUND 14:20
PROVIDERS: ATTEND Podiatrist Foot & Ankle Surgery
DX: E11.621 Type 2 diabetes mellitus with foot ulcer (principal); L97.513 Non-pressure chronic ulcer of other part of right foot with necrosis of muscle; E11.622 Type 2 diabetes mellitus with other skin ulcer; L97.821 Non-pressure chronic ulcer of other part of left lower leg limited to breakdown of skin; L97.312 Non-pressure chronic ulcer of right ankle with fat layer exposed; E11.69 Type 2 diabetes mellitus with other specified complication; M86.171 Other acute osteomyelitis, right ankle and foot; E66.01 Morbid (severe) obesity due to excess calories; E11.22 Type 2 diabetes mellitus with diabetic chronic kidney disease; I13.2 Hypertensive heart and chronic kidney disease with heart failure and with stage 5 chronic kidney disease, or end stage renal disease; N18.6 End stage renal disease; I50.22 Chronic systolic (congestive) heart failure; I50.30 Unspecified diastolic (congestive) heart failure; N25.81 Secondary hyperparathyroidism of renal origin; K21.9 Gastro-esophageal reflux disease without esophagitis; E78.5 Hyperlipidemia, unspecified; I89.0 Lymphedema, not elsewhere classified; F32.9 Major depressive disorder, single episode, unspecified; G89.29 Other chronic pain; E11.42 Type 2 diabetes mellitus with diabetic polyneuropathy; I48.91 Unspecified atrial fibrillation; Z89.421 Acquired absence of other right toe(s); Z86.73 Personal history of transient ischemic attack (TIA), and cerebral infarction without residual deficits; Z79.899 Other long term (current) drug therapy; Z79.82 Long term (current) use of aspirin; Z79.4 Long term (current) use of insulin; Z99.2 Dependence on renal dialysis; Z68.42 Body mass index [BMI] 45.0-49.9, adult
CPT/HCPCS: 11042; 97597

== ENCOUNTER → 2018-05-17 | Outpatient (CLI) | payer MEDICARE | END | disposition home or self-care (01) | LOC: WOUND 14:22 | PROVIDERS: ATTEND Podiatrist Foot & Ankle Surgery | DX: E11.621 Type 2 diabetes mellitus with foot ulcer (principal); L97.513 Non-pressure chronic ulcer of other part of right foot with necrosis of muscle; E11.622 Type 2 diabetes mellitus with other skin ulcer; L97.312 Non-pressure chronic ulcer of right ankle with fat layer exposed; L97.821 Non-pressure chronic ulcer of other part of left lower leg limited to breakdown of skin; E66.01 Morbid (severe) obesity due to excess calories; E11.69 Type 2 diabetes mellitus with other specified complication; M86.171 Other acute osteomyelitis, right ankle and foot; K21.9 Gastro-esophageal reflux disease without esophagitis; G89.29 Other chronic pain; I48.91 Unspecified atrial fibrillation; E78.5 Hyperlipidemia, unspecified; E11.22 Type 2 diabetes mellitus with diabetic chronic kidney disease; I13.2 Hypertensive heart and chronic kidney disease with heart failure and with stage 5 chronic kidney disease, or end stage renal disease; N18.6 End stage renal disease; I50.22 Chronic systolic (congestive) heart failure; I89.0 Lymphedema, not elsewhere classified; F32.9 Major depressive disorder, single episode, unspecified; E11.42 Type 2 diabetes mellitus with diabetic polyneuropathy; N25.81 Secondary hyperparathyroidism of renal origin; M10.9 Gout, unspecified; Z86.73 Personal history of transient ischemic attack (TIA), and cerebral infarction without residual deficits; Z68.41 Body mass index [BMI] 40.0-44.9, adult; Z79.899 Other long term (current) drug therapy; Z79.82 Long term (current) use of aspirin; Z79.4 Long term (current) use of insulin; Z99.2 Dependence on renal dialysis; Z89.421 Acquired absence of other right toe(s) | CPT/HCPCS: 11042; 11045 ==

== ENCOUNTER → 2018-05-24 | Outpatient (CLI) | payer MEDICARE ==
[~2018-05-24] MED LIST changes: -AMLO5TAB2 PO; +AMLO5TAB7 PO; -LOSA25TA5 PO; +LOSA25TA6 PO
== END | disposition home or self-care (01) ==
LOC: WOUND 15:23
PROVIDERS: ATTEND Podiatrist Foot & Ankle Surgery
DX: E11.621 Type 2 diabetes mellitus with foot ulcer (principal); L97.513 Non-pressure chronic ulcer of other part of right foot with necrosis of muscle; L97.312 Non-pressure chronic ulcer of right ankle with fat layer exposed; L97.821 Non-pressure chronic ulcer of other part of left lower leg limited to breakdown of skin; I13.2 Hypertensive heart and chronic kidney disease with heart failure and with stage 5 chronic kidney disease, or end stage renal disease; E11.22 Type 2 diabetes mellitus with diabetic chronic kidney disease; N18.6 End stage renal disease; I50.22 Chronic systolic (congestive) heart failure; E11.42 Type 2 diabetes mellitus with diabetic polyneuropathy; F32.9 Major depressive disorder, single episode, unspecified; I89.0 Lymphedema, not elsewhere classified; M86.171 Other acute osteomyelitis, right ankle and foot; K21.9 Gastro-esophageal reflux disease without esophagitis; E21.1 Secondary hyperparathyroidism, not elsewhere classified; I48.91 Unspecified atrial fibrillation; E78.5 Hyperlipidemia, unspecified; M10.9 Gout, unspecified; E66.01 Morbid (severe) obesity due to excess calories; Z68.41 Body mass index [BMI] 40.0-44.9, adult; Z99.2 Dependence on renal dialysis; Z79.4 Long term (current) use of insulin; Z79.82 Long term (current) use of aspirin; Z86.73 Personal history of transient ischemic attack (TIA), and cerebral infarction without residual deficits
CPT/HCPCS: 11042; 11045

== ENCOUNTER → 2018-05-31 | Outpatient (CLI) | payer MEDICARE | END | disposition home or self-care (01) | LOC: WOUND 15:15 | PROVIDERS: ATTEND Podiatrist Foot & Ankle Surgery | DX: E11.621 Type 2 diabetes mellitus with foot ulcer (principal); L97.513 Non-pressure chronic ulcer of other part of right foot with necrosis of muscle; L97.521 Non-pressure chronic ulcer of other part of left foot limited to breakdown of skin; E11.622 Type 2 diabetes mellitus with other skin ulcer; L97.312 Non-pressure chronic ulcer of right ankle with fat layer exposed; L97.821 Non-pressure chronic ulcer of other part of left lower leg limited to breakdown of skin; E11.69 Type 2 diabetes mellitus with other specified complication; M86.171 Other acute osteomyelitis, right ankle and foot; E66.01 Morbid (severe) obesity due to excess calories; E11.22 Type 2 diabetes mellitus with diabetic chronic kidney disease; I13.0 Hypertensive heart and chronic kidney disease with heart failure and stage 1 through stage 4 chronic kidney disease, or unspecified chronic kidney disease; N18.4 Chronic kidney disease, stage 4 (severe); I50.9 Heart failure, unspecified; E78.5 Hyperlipidemia, unspecified; I89.0 Lymphedema, not elsewhere classified; M10.9 Gout, unspecified; I48.91 Unspecified atrial fibrillation; F32.9 Major depressive disorder, single episode, unspecified; Z99.2 Dependence on renal dialysis; Z68.41 Body mass index [BMI] 40.0-44.9, adult | CPT/HCPCS: 11042; 11045 ==

== ENCOUNTER → 2018-06-07 | Outpatient (CLI) | payer MEDICARE | END | disposition home or self-care (01) | LOC: WOUND 15:00 | PROVIDERS: ATTEND Podiatrist Foot & Ankle Surgery | DX: E11.621 Type 2 diabetes mellitus with foot ulcer (principal); L97.512 Non-pressure chronic ulcer of other part of right foot with fat layer exposed; E11.622 Type 2 diabetes mellitus with other skin ulcer; L97.312 Non-pressure chronic ulcer of right ankle with fat layer exposed; L97.821 Non-pressure chronic ulcer of other part of left lower leg limited to breakdown of skin; I13.2 Hypertensive heart and chronic kidney disease with heart failure and with stage 5 chronic kidney disease, or end stage renal disease; E11.22 Type 2 diabetes mellitus with diabetic chronic kidney disease; N18.6 End stage renal disease; I50.22 Chronic systolic (congestive) heart failure; E11.42 Type 2 diabetes mellitus with diabetic polyneuropathy; E11.69 Type 2 diabetes mellitus with other specified complication; M86.171 Other acute osteomyelitis, right ankle and foot; F32.9 Major depressive disorder, single episode, unspecified; E78.5 Hyperlipidemia, unspecified; G89.29 Other chronic pain; I89.0 Lymphedema, not elsewhere classified; I71.4 Abdominal aortic aneurysm, without rupture; M10.9 Gout, unspecified; K21.9 Gastro-esophageal reflux disease without esophagitis; N25.81 Secondary hyperparathyroidism of renal origin; I48.91 Unspecified atrial fibrillation; E66.01 Morbid (severe) obesity due to excess calories; Z68.41 Body mass index [BMI] 40.0-44.9, adult; Z99.2 Dependence on renal dialysis; Z79.4 Long term (current) use of insulin; Z79.82 Long term (current) use of aspirin; Z86.73 Personal history of transient ischemic attack (TIA), and cerebral infarction without residual deficits | CPT/HCPCS: 11042; 11045 ==

== ENCOUNTER → 2018-06-21 | Outpatient (CLI) | payer MEDICARE ==
[~2018-06-21] MED LIST changes: +OXYC-302 PO
== END | disposition home or self-care (01) ==
LOC: WOUND 15:34
PROVIDERS: ATTEND Podiatrist Foot & Ankle Surgery
DX: E11.621 Type 2 diabetes mellitus with foot ulcer (principal); L97.513 Non-pressure chronic ulcer of other part of right foot with necrosis of muscle; E11.622 Type 2 diabetes mellitus with other skin ulcer; L97.312 Non-pressure chronic ulcer of right ankle with fat layer exposed; L97.821 Non-pressure chronic ulcer of other part of left lower leg limited to breakdown of skin; E11.22 Type 2 diabetes mellitus with diabetic chronic kidney disease; I13.2 Hypertensive heart and chronic kidney disease with heart failure and with stage 5 chronic kidney disease, or end stage renal disease; N18.6 End stage renal disease; I50.42 Chronic combined systolic (congestive) and diastolic (congestive) heart failure; E11.42 Type 2 diabetes mellitus with diabetic polyneuropathy; E11.69 Type 2 diabetes mellitus with other specified complication; M86.171 Other acute osteomyelitis, right ankle and foot; F32.9 Major depressive disorder, single episode, unspecified; E78.5 Hyperlipidemia, unspecified; G89.29 Other chronic pain; I89.0 Lymphedema, not elsewhere classified; M10.9 Gout, unspecified; K21.9 Gastro-esophageal reflux disease without esophagitis; N25.81 Secondary hyperparathyroidism of renal origin; I48.91 Unspecified atrial fibrillation; E66.01 Morbid (severe) obesity due to excess calories; Z68.41 Body mass index [BMI] 40.0-44.9, adult; Z99.2 Dependence on renal dialysis; Z79.4 Long term (current) use of insulin; Z86.73 Personal history of transient ischemic attack (TIA), and cerebral infarction without residual deficits
CPT/HCPCS: 11042; 11045; 97597

== ENCOUNTER → 2018-06-28 | Outpatient (CLI) | payer MEDICARE ==
[~2018-06-28] MED LIST changes: -OXYC-302 PO
== END | disposition home or self-care (01) ==
LOC: WOUND 13:46
PROVIDERS: ATTEND Podiatrist Foot & Ankle Surgery
DX: E11.621 Type 2 diabetes mellitus with foot ulcer (principal); L97.513 Non-pressure chronic ulcer of other part of right foot with necrosis of muscle; E11.622 Type 2 diabetes mellitus with other skin ulcer; L97.821 Non-pressure chronic ulcer of other part of left lower leg limited to breakdown of skin; L97.812 Non-pressure chronic ulcer of other part of right lower leg with fat layer exposed; E11.42 Type 2 diabetes mellitus with diabetic polyneuropathy; I13.2 Hypertensive heart and chronic kidney disease with heart failure and with stage 5 chronic kidney disease, or end stage renal disease; E11.22 Type 2 diabetes mellitus with diabetic chronic kidney disease; N18.6 End stage renal disease; I50.42 Chronic combined systolic (congestive) and diastolic (congestive) heart failure; E11.40 Type 2 diabetes mellitus with diabetic neuropathy, unspecified; E11.69 Type 2 diabetes mellitus with other specified complication; M86.171 Other acute osteomyelitis, right ankle and foot; I89.0 Lymphedema, not elsewhere classified; F32.9 Major depressive disorder, single episode, unspecified; G89.29 Other chronic pain; E78.5 Hyperlipidemia, unspecified; I48.91 Unspecified atrial fibrillation; M10.9 Gout, unspecified; K21.9 Gastro-esophageal reflux disease without esophagitis; E21.1 Secondary hyperparathyroidism, not elsewhere classified; E66.01 Morbid (severe) obesity due to excess calories; Z68.41 Body mass index [BMI] 40.0-44.9, adult; Z99.2 Dependence on renal dialysis; Z79.4 Long term (current) use of insulin; Z79.82 Long term (current) use of aspirin; Z86.73 Personal history of transient ischemic attack (TIA), and cerebral infarction without residual deficits
CPT/HCPCS: 11042; 11045

== ENCOUNTER → 2018-07-12 | Outpatient (CLI) | payer MEDICARE | END | disposition home or self-care (01) | LOC: WOUND 15:11 | PROVIDERS: ATTEND Podiatrist Foot & Ankle Surgery | DX: E11.621 Type 2 diabetes mellitus with foot ulcer (principal); L97.513 Non-pressure chronic ulcer of other part of right foot with necrosis of muscle; E11.622 Type 2 diabetes mellitus with other skin ulcer; L97.312 Non-pressure chronic ulcer of right ankle with fat layer exposed; L97.323 Non-pressure chronic ulcer of left ankle with necrosis of muscle; E11.42 Type 2 diabetes mellitus with diabetic polyneuropathy; E11.69 Type 2 diabetes mellitus with other specified complication; M86.171 Other acute osteomyelitis, right ankle and foot; I13.2 Hypertensive heart and chronic kidney disease with heart failure and with stage 5 chronic kidney disease, or end stage renal disease; N18.6 End stage renal disease; E11.22 Type 2 diabetes mellitus with diabetic chronic kidney disease; I50.42 Chronic combined systolic (congestive) and diastolic (congestive) heart failure; E66.01 Morbid (severe) obesity due to excess calories; E78.5 Hyperlipidemia, unspecified; I89.0 Lymphedema, not elsewhere classified; I48.91 Unspecified atrial fibrillation; G89.29 Other chronic pain; E21.1 Secondary hyperparathyroidism, not elsewhere classified; M10.9 Gout, unspecified; K21.9 Gastro-esophageal reflux disease without esophagitis; F32.9 Major depressive disorder, single episode, unspecified; Z99.2 Dependence on renal dialysis; Z68.41 Body mass index [BMI] 40.0-44.9, adult; Z79.82 Long term (current) use of aspirin; Z79.4 Long term (current) use of insulin; Z86.73 Personal history of transient ischemic attack (TIA), and cerebral infarction without residual deficits | CPT/HCPCS: 11042; 11043; 11045; 97597 ==

== ENCOUNTER → 2018-07-19 | Outpatient (CLI) | payer MEDICARE ==
[~2018-07-19] MED LIST changes: +AZIT500T5 PO; +CEPH-368 PO; +OXYC-302 PO
== END | disposition home or self-care (01) ==
LOC: WOUND 15:38
PROVIDERS: ATTEND Podiatrist Foot & Ankle Surgery
DX: T87.89 Other complications of amputation stump (principal); E11.621 Type 2 diabetes mellitus with foot ulcer; L97.513 Non-pressure chronic ulcer of other part of right foot with necrosis of muscle; E11.622 Type 2 diabetes mellitus with other skin ulcer; L97.323 Non-pressure chronic ulcer of left ankle with necrosis of muscle; L97.312 Non-pressure chronic ulcer of right ankle with fat layer exposed; E11.42 Type 2 diabetes mellitus with diabetic polyneuropathy; E11.69 Type 2 diabetes mellitus with other specified complication; M86.171 Other acute osteomyelitis, right ankle and foot; I13.2 Hypertensive heart and chronic kidney disease with heart failure and with stage 5 chronic kidney disease, or end stage renal disease; E11.22 Type 2 diabetes mellitus with diabetic chronic kidney disease; N18.6 End stage renal disease; I50.42 Chronic combined systolic (congestive) and diastolic (congestive) heart failure; G89.29 Other chronic pain; F32.9 Major depressive disorder, single episode, unspecified; E66.01 Morbid (severe) obesity due to excess calories; E78.5 Hyperlipidemia, unspecified; K21.9 Gastro-esophageal reflux disease without esophagitis; E21.1 Secondary hyperparathyroidism, not elsewhere classified; I48.91 Unspecified atrial fibrillation; I89.0 Lymphedema, not elsewhere classified; M10.9 Gout, unspecified; Z79.4 Long term (current) use of insulin; Z99.2 Dependence on renal dialysis; Z68.41 Body mass index [BMI] 40.0-44.9, adult; Z86.73 Personal history of transient ischemic attack (TIA), and cerebral infarction without residual deficits; Y83.5 Amputation of limb(s) as the cause of abnormal reaction of the patient, or of later complication, without mention of misadventure at the time of the procedure
CPT/HCPCS: 11042; 11043; 97597

== ENCOUNTER 2018-07-26 13:53 | Emergency (ER) | payer MEDICARE ==
[~2018-07-26] VITALS: Ht 175.3 cm; Wt 130.0 kg
[~2018-07-26 13:53] MED LIST changes: -AZIT500T5 PO; -CEPH-368 PO; -OXYC-302 PO
[2018-07-26] MEDS ORDERED: ONDANSETRON ODT 4 MG PO ONE (14:00)
[2018-07-26] MEDS ORDERED: ONDANSETRON ODT 4 MG ONE (14:18)
[2018-07-26 14:19] LABS: BASOPHILS # (AUTO) 0.02 x10^3/uL (0-0.1); BASOPHILS % (AUTO) 0 % (0-1); EOSINOPHILS # (AUTO) 0.15 x10^3/uL (0-0.4); EOSINOPHILS % (AUTO) 2 % (1-7); LYMPHOCYTES # (AUTO) 0.45 x10^3/uL (1-3.4); LYMPHOCYTES % (AUTO) 6 % (22-44); MD NO; MEAN CORPUSCULAR HEMOGLOBIN 32.2 pg (27.5-34.5); MEAN CORPUSCULAR HGB CONC 33.4 g/dL (33.2-36.2); MEAN CORPUSCULAR VOLUME 96.6 fL (81-97); MEAN PLATELET VOLUME 8.7 fL (7.4-10.4); MONOCYTES # (AUTO) 0.51 x10^3/uL (0.2-0.8); MONOCYTES % (AUTO) 7 % (2-9); NEUTROPHILS % (AUTO) 85 % (42-75); PLATELET COUNT 274 x10^3/uL (130-400); RED BLOOD COUNT 4.01 x10^6/uL (4.38-5.82); RED CELL DISTRIBUTION WIDTH 14.6 % (9.4-14.8)
[2018-07-26 14:29] LABS: ALBUMIN 2.8 g/dL (3.4-5.0); ANION GAP 17 mmol/L (5-15); CALCIUM 8.1 mg/dL (8.5-10.1); CHLORIDE 96 mmol/L (98-107)
[2018-07-26 14:34] LABS: ALANINE AMINOTRANSFERASE 13 U/L (12-78); ALKALINE PHOSPHATASE 71 U/L (45-117); BILIRUBIN,TOTAL 0.5 mg/dL (0.2-1.0); TOTAL PROTEIN 7.4 g/dL (6.4-8.2); TROPONIN I 0.075 ng/mL (0.000-0.045)
[2018-07-26 16:58] VITALS: BP 132/91
[2018-07-27] MEDS ORDERED: GABA300C10 PO (17:23)
[2018-07-27] MEDS ORDERED: OXYC-302 PO (17:23)
[2018-07-27] MEDS ORDERED: AMOX1TAB64 PO (17:28)
== END 2018-07-26 17:02 | disposition home or self-care (01) ==
LOC: ED 15:00
DX: E11.22 Type 2 diabetes mellitus with diabetic chronic kidney disease (principal); I12.0 Hypertensive chronic kidney disease with stage 5 chronic kidney disease or end stage renal disease; N18.6 End stage renal disease; K21.9 Gastro-esophageal reflux disease without esophagitis; I48.91 Unspecified atrial fibrillation; L97.909 Non-pressure chronic ulcer of unspecified part of unspecified lower leg with unspecified severity; R53.1 Weakness; R11.2 Nausea with vomiting, unspecified; Z99.2 Dependence on renal dialysis
CPT/HCPCS: 36415; 71045; 80053; 84484; 85025; 93005; 99285; Q0162

== ENCOUNTER 2018-07-27 14:23 | Inpatient (IN) | payer MEDICARE, OTHER ==
[~2018-07-27] VITALS: Ht 175.3 cm; Wt 125.0 kg
[2018-07-27 15:36] LABS: BASOPHILS # (AUTO) 0.04 x10^3/uL (0-0.1); BASOPHILS % (AUTO) 1 % (0-1); EOSINOPHILS # (AUTO) 0.15 x10^3/uL (0-0.4); EOSINOPHILS % (AUTO) 2 % (1-7); LYMPHOCYTES # (AUTO) 0.66 x10^3/uL (1-3.4); LYMPHOCYTES % (AUTO) 7 % (22-44); MD NO; MEAN CORPUSCULAR HEMOGLOBIN 30.8 pg (27.5-34.5); MEAN PLATELET VOLUME 8.3 fL (7.4-10.4); MONOCYTES # (AUTO) 0.44 x10^3/uL (0.2-0.8); MONOCYTES % (AUTO) 5 % (2-9); NEUTROPHILS # (AUTO) 7.69 x10^3/uL (1.8-6.8); NEUTROPHILS % (AUTO) 86 % (42-75); PLATELET COUNT 323 x10^3/uL (130-400); RED BLOOD COUNT 4.22 x10^6/uL (4.38-5.82); RED CELL DISTRIBUTION WIDTH 15.2 % (9.4-14.8)
[2018-07-27 15:43] LABS: ALANINE AMINOTRANSFERASE 14 U/L (12-78); ALBUMIN 3.2 g/dL (3.4-5.0); ANION GAP 19 mmol/L (5-15); CALCIUM 8.4 mg/dL (8.5-10.1); CHLORIDE 92 mmol/L (98-107)
[2018-07-27 16:00] LABS: ALKALINE PHOSPHATASE 78 U/L (45-117); BILIRUBIN,TOTAL 0.5 mg/dL (0.2-1.0); TOTAL PROTEIN 8.3 g/dL (6.4-8.2)
[2018-07-27] MEDS ORDERED: SODIUM CHLORIDE 0.9% 1,000ML IVBOLUS ONE (16:00)
[2018-07-27] MEDS ORDERED: SODIUM CHLORIDE FLUSH 10ML SYR IVF ONE (17:00)
[2018-07-27] MEDS ORDERED: GABA300C10 PO (17:23)
[2018-07-27] MEDS ORDERED: OXYC-302 PO (17:23)
[2018-07-27] MEDS ORDERED: AMOX1TAB64 PO (17:28)
[2018-07-27] MEDS ORDERED: HYDROcodone/APAP 5/325 TABLET PO PRN (17:30)
[2018-07-27] MEDS ORDERED: LABETALOL 5MG/ML, 20ML IVPush PRN (17:30)
[2018-07-27] MEDS ORDERED: ONDANSETRON 2MG/ML, 2ML IVPush PRN (17:30)
[2018-07-27] MEDS ORDERED: ONDANSETRON ODT 4 MG PO PRN (17:30)
[2018-07-27 17:46] LABS: FREE T4 (FREE THYROXINE) 0.93 ng/dL (0.76-1.46)
[2018-07-27 18:35] VITALS: BP 108/75
[2018-07-27] MEDS: HEPARIN 5,000 UNITS/ML, 1ML SQ SCH (18:40)
[2018-07-27] MEDS ORDERED: GENTAMICIN CRM 0.1%, 30GM TP PRN (19:00)
[2018-07-27] MEDS: OXYcodone/APAP 5/325MG TABLET PO PRN (21:37)
[2018-07-27] MEDS: CARVEDILOL 12.5 MG TABLET PO SCH (21:37)
[2018-07-27] MEDS: CALCITRIOL 0.5 MCG CAPSULE PO SCH (21:37)
[2018-07-27] MEDS: ATORVASTATIN 40 MG TABLET PO SCH (21:37)
[2018-07-27] MEDS: INSULIN GLARGINE 100 UNITS/ML, PEN SQ-INSULIN SCH (22:50)
[2018-07-27] MEDS: TRAZODONE 50MG TABLET PO PRN (22:54)
[2018-07-28] MEDS ORDERED: morphine SULFATE 10 MG/ML, 1ML IVPush ONE (01:00)
[2018-07-28 02:25] VITALS: BP 144/76
[2018-07-28] MEDS: HEPARIN 5,000 UNITS/ML, 1ML SQ SCH ×3 (03:28→19:42)
[2018-07-28 04:14] LABS: BASOPHILS # (AUTO) 0.04 x10^3/uL (0-0.1); BASOPHILS % (AUTO) 1 % (0-1); EOSINOPHILS # (AUTO) 0.18 x10^3/uL (0-0.4); EOSINOPHILS % (AUTO) 2 % (1-7); LYMPHOCYTES # (AUTO) 1.09 x10^3/uL (1-3.4); LYMPHOCYTES % (AUTO) 13 % (22-44); MD NO; MEAN CORPUSCULAR HEMOGLOBIN 32.3 pg (27.5-34.5); MEAN CORPUSCULAR HGB CONC 33.5 g/dL (33.2-36.2); MEAN CORPUSCULAR VOLUME 96.5 fL (81-97); MEAN PLATELET VOLUME 8.4 fL (7.4-10.4); MONOCYTES # (AUTO) 0.61 x10^3/uL (0.2-0.8); MONOCYTES % (AUTO) 8 % (2-9); NEUTROPHILS # (AUTO) 6.21 x10^3/uL (1.8-6.8); NEUTROPHILS % (AUTO) 76 % (42-75); PLATELET COUNT 302 x10^3/uL (130-400)
[2018-07-28 04:24] LABS: ANION GAP 14 mmol/L (5-15); CALCIUM 7.9 mg/dL (8.5-10.1); CHLORIDE 95 mmol/L (98-107)
[2018-07-28] MEDS: ASPIRIN 81 MG TABLET EC PO SCH (05:38)
[2018-07-28] MEDS: OXYcodone/APAP 5/325MG TABLET PO PRN (05:38)
[2018-07-28 08:41] VITALS: BP 91/61
[2018-07-28] MEDS: SENNA/DOCUSATE TABLET PO SCH (09:00)
[2018-07-28] MEDS: AMLODIPINE 5 MG TABLET PO SCH (09:00)
[2018-07-28] MEDS: CARVEDILOL 12.5 MG TABLET PO SCH ×2 (09:00→20:58)
[2018-07-28] MEDS: ALLOPURINOL 100 MG TABLET PO SCH (09:07)
[2018-07-28] MEDS: CALCITRIOL 0.5 MCG CAPSULE PO SCH ×2 (09:07→20:57)
[2018-07-28] MEDS: MULTIVITAMIN 1 TABLET PO SCH (09:07)
[2018-07-28] MEDS: LINAGLIPTIN 5 MG TAB PO SCH (09:08)
[2018-07-28] MEDS ORDERED: OXYcodone/APAP 5/325MG TABLET PO SCH (10:30)
[2018-07-28] MEDS ORDERED: GABAPENTIN 300 MG CAPSULE PO SCH (10:30)
[2018-07-28] MEDS: OXYcodone/APAP 5/325MG TABLET PO SCH ×3 (12:03→20:58)
[2018-07-28] MEDS: GABAPENTIN 300 MG CAPSULE PO SCH ×3 (12:03→20:58)
[2018-07-28] MEDS ORDERED: SEVELAMER HCL 800MG TABLET PO SCH (12:30)
[2018-07-28] MEDS ORDERED: SEVELAMER CARBONATE 800MG TAB ONE ×2 (12:48→13:01)
[2018-07-28] MEDS: AMOXICILLIN/CLAV 500-125MG TABLET PO SCH ×2 (14:22→20:57)
[2018-07-28] MEDS ORDERED: LIDOCAINE/PRILOCAINE CRM W/TEG 5GM TP ONE (15:00)
[2018-07-28 15:12] VITALS: BP 108/73
[2018-07-28] MEDS: SEVELAMER CARBONATE 800MG TAB PO SCH (17:00)
[2018-07-28] MEDS: ATORVASTATIN 40 MG TABLET PO SCH (20:57)
[2018-07-28] MEDS: INSULIN GLARGINE 100 UNITS/ML, PEN SQ-INSULIN SCH (20:59)
[2018-07-28 21:18] VITALS: BP 102/61
[2018-07-29 02:31] VITALS: BP 110/64
[2018-07-29] MEDS: HEPARIN 5,000 UNITS/ML, 1ML SQ SCH ×3 (03:06→20:45)
[2018-07-29 05:18] LABS: BASOPHILS # (AUTO) 0.04 x10^3/uL (0-0.1); BASOPHILS % (AUTO) 1 % (0-1); EOSINOPHILS # (AUTO) 0.23 x10^3/uL (0-0.4); EOSINOPHILS % (AUTO) 3 % (1-7); LYMPHOCYTES # (AUTO) 1.14 x10^3/uL (1-3.4); LYMPHOCYTES % (AUTO) 14 % (22-44); MD NO; MEAN CORPUSCULAR HEMOGLOBIN 31.9 pg (27.5-34.5); MEAN CORPUSCULAR HGB CONC 33.2 g/dL (33.2-36.2); MEAN PLATELET VOLUME 8.4 fL (7.4-10.4); MONOCYTES # (AUTO) 0.52 x10^3/uL (0.2-0.8); MONOCYTES % (AUTO) 7 % (2-9); NEUTROPHILS # (AUTO) 6.11 x10^3/uL (1.8-6.8); NEUTROPHILS % (AUTO) 76 % (42-75); PLATELET COUNT 300 x10^3/uL (130-400); RED BLOOD COUNT 4.17 x10^6/uL (4.38-5.82); RED CELL DISTRIBUTION WIDTH 14.9 % (9.4-14.8)
[2018-07-29 05:24] LABS: ALANINE AMINOTRANSFERASE 12 U/L (12-78); ALBUMIN 2.6 g/dL (3.4-5.0); ANION GAP 18 mmol/L (5-15); CALCIUM 7.9 mg/dL (8.5-10.1); CHLORIDE 94 mmol/L (98-107)
[2018-07-29 05:26] LABS: ALKALINE PHOSPHATASE 69 U/L (45-117); BILIRUBIN,TOTAL 0.7 mg/dL (0.2-1.0)
[2018-07-29] MEDS: ASPIRIN 81 MG TABLET EC PO SCH (05:26)
[2018-07-29 06:29] VITALS: BP 107/68
[2018-07-29] MEDS: AMOXICILLIN/CLAV 500-125MG TABLET PO SCH (08:45)
[2018-07-29] MEDS: CALCITRIOL 0.5 MCG CAPSULE PO SCH ×2 (08:45→20:44)
[2018-07-29] MEDS: SEVELAMER CARBONATE 800MG TAB PO SCH ×3 (08:46→17:40)
[2018-07-29] MEDS: ALLOPURINOL 100 MG TABLET PO SCH (08:47)
[2018-07-29] MEDS: CARVEDILOL 12.5 MG TABLET PO SCH ×2 (08:47→20:43)
[2018-07-29] MEDS: MULTIVITAMIN 1 TABLET PO SCH (08:48)
[2018-07-29] MEDS: SENNA/DOCUSATE TABLET PO SCH (08:48)
[2018-07-29] MEDS: AMLODIPINE 5 MG TABLET PO SCH (08:48)
[2018-07-29] MEDS: OXYcodone/APAP 5/325MG TABLET PO SCH ×3 (08:49→20:47)
[2018-07-29] MEDS: GABAPENTIN 300 MG CAPSULE PO SCH ×3 (08:49→20:44)
[2018-07-29] MEDS: LINAGLIPTIN 5 MG TAB PO SCH (08:49)
[2018-07-29] MEDS ORDERED: MORPHINE SULFATE 4 MG/ML, 1ML IVPush PRN (10:30)
[2018-07-29 12:17] VITALS: BP 99/65
[2018-07-29] MEDS ORDERED: VANCOMYCIN PER PHARMACY MC PRN (14:30)
[2018-07-29] MEDS ORDERED: PHARMACOKINETIC CONSULTATION MC ONE (15:00)
[2018-07-29] MEDS ORDERED: PHARMACOKINETIC MONITORING MC PRN (15:00)
[2018-07-29] MEDS ORDERED: VANCOMYCIN 2,000 MG in SODIUM CHLORIDE 0.9% 500 ML IV ONE (15:00)
[2018-07-29 15:58] LABS: HCT (SEDRATE) 37.6 % (39.2-51.8)
[2018-07-29 20:15] VITALS: BP 91/58
[2018-07-29] MEDS: ATORVASTATIN 40 MG TABLET PO SCH (20:44)
[2018-07-29 20:50] VITALS: BP 112/57
[2018-07-29] MEDS: INSULIN GLARGINE 100 UNITS/ML, PEN SQ-INSULIN SCH (21:00)
[2018-07-30] VITALS (7 sets, daily range): BP systolic 91–110; BP diastolic 59–69
[2018-07-30] MEDS: ASPIRIN 81 MG TABLET EC PO SCH (04:59)
[2018-07-30] MEDS: HEPARIN 5,000 UNITS/ML, 1ML SQ SCH ×3 (05:17→20:14)
[2018-07-30 05:53] LABS: ALBUMIN 2.6 g/dL (3.4-5.0); ANION GAP 17 mmol/L (5-15); BASOPHILS # (AUTO) 0.06 x10^3/uL (0-0.1); BASOPHILS % (AUTO) 1 % (0-1); CALCIUM 8.3 mg/dL (8.5-10.1); CHLORIDE 95 mmol/L (98-107); EOSINOPHILS # (AUTO) 0.23 x10^3/uL (0-0.4); EOSINOPHILS % (AUTO) 3 % (1-7); LYMPHOCYTES # (AUTO) 1.15 x10^3/uL (1-3.4); LYMPHOCYTES % (AUTO) 14 % (22-44); MD NO; MEAN CORPUSCULAR HEMOGLOBIN 31.9 pg (27.5-34.5); MEAN CORPUSCULAR HGB CONC 33.3 g/dL (33.2-36.2); MEAN CORPUSCULAR VOLUME 95.8 fL (81-97); MEAN PLATELET VOLUME 8.8 fL (7.4-10.4); MONOCYTES # (AUTO) 0.65 x10^3/uL (0.2-0.8); MONOCYTES % (AUTO) 8 % (2-9); NEUTROPHILS # (AUTO) 6.36 x10^3/uL (1.8-6.8); NEUTROPHILS % (AUTO) 75 % (42-75); PLATELET COUNT 299 x10^3/uL (130-400); RED BLOOD COUNT 4.18 x10^6/uL (4.38-5.82)
[2018-07-30] MEDS: SEVELAMER CARBONATE 800MG TAB PO SCH ×3 (09:17→17:23)
[2018-07-30] MEDS: CALCITRIOL 0.5 MCG CAPSULE PO SCH ×2 (09:26→20:13)
[2018-07-30] MEDS: CARVEDILOL 12.5 MG TABLET PO SCH ×2 (09:26→20:14)
[2018-07-30] MEDS: OXYcodone/APAP 5/325MG TABLET PO SCH ×3 (09:26→20:13)
[2018-07-30] MEDS: LINAGLIPTIN 5 MG TAB PO SCH (09:26)
[2018-07-30] MEDS: AMLODIPINE 5 MG TABLET PO SCH (09:27)
[2018-07-30] MEDS: ALLOPURINOL 100 MG TABLET PO SCH (09:27)
[2018-07-30] MEDS: GABAPENTIN 300 MG CAPSULE PO SCH ×3 (09:27→20:13)
[2018-07-30] MEDS: MULTIVITAMIN 1 TABLET PO SCH (09:28)
[2018-07-30] MEDS: SENNA/DOCUSATE TABLET PO SCH (09:28)
[2018-07-30] MEDS: ATORVASTATIN 40 MG TABLET PO SCH (20:13)
[2018-07-30] MEDS: INSULIN GLARGINE 100 UNITS/ML, PEN SQ-INSULIN SCH (21:00)
[2018-07-30] MEDS: TRAZODONE 50MG TABLET PO PRN (21:38)
[2018-07-31 01:48] VITALS: BP 98/58
[2018-07-31] MEDS: ASPIRIN 81 MG TABLET EC PO SCH (04:32)
[2018-07-31] MEDS: HEPARIN 5,000 UNITS/ML, 1ML SQ SCH ×3 (04:32→19:46)
[2018-07-31 05:02] LABS: BASOPHILS # (AUTO) 0.02 x10^3/uL (0-0.1); BASOPHILS % (AUTO) 0 % (0-1); EOSINOPHILS # (AUTO) 0.32 x10^3/uL (0-0.4); EOSINOPHILS % (AUTO) 4 % (1-7); LYMPHOCYTES # (AUTO) 1.18 x10^3/uL (1-3.4); LYMPHOCYTES % (AUTO) 14 % (22-44); MD NO; MEAN CORPUSCULAR HEMOGLOBIN 32.5 pg (27.5-34.5); MEAN CORPUSCULAR HGB CONC 33.6 g/dL (33.2-36.2); MEAN CORPUSCULAR VOLUME 96.7 fL (81-97); MEAN PLATELET VOLUME 8.5 fL (7.4-10.4); MONOCYTES # (AUTO) 0.52 x10^3/uL (0.2-0.8); MONOCYTES % (AUTO) 6 % (2-9); NEUTROPHILS # (AUTO) 6.69 x10^3/uL (1.8-6.8); NEUTROPHILS % (AUTO) 77 % (42-75); PLATELET COUNT 298 x10^3/uL (130-400); RED BLOOD COUNT 4.11 x10^6/uL (4.38-5.82); RED CELL DISTRIBUTION WIDTH 14.3 % (9.4-14.8)
[2018-07-31 05:12] LABS: ALBUMIN 2.8 g/dL (3.4-5.0); ANION GAP 17 mmol/L (5-15); CALCIUM 8.5 mg/dL (8.5-10.1); CHLORIDE 93 mmol/L (98-107)
[2018-07-31] MEDS: SEVELAMER CARBONATE 800MG TAB PO SCH ×3 (08:00→16:35)
[2018-07-31] MEDS: POLYETHYLENE GLYCOL 17 GM PACKET PO PRN (08:43)
[2018-07-31] MEDS: CALCITRIOL 0.5 MCG CAPSULE PO SCH ×2 (08:43→19:45)
[2018-07-31] MEDS: MULTIVITAMIN 1 TABLET PO SCH (08:44)
[2018-07-31] MEDS: LINAGLIPTIN 5 MG TAB PO SCH (08:44)
[2018-07-31] MEDS: SENNA/DOCUSATE TABLET PO SCH (08:44)
[2018-07-31] MEDS: AMLODIPINE 5 MG TABLET PO SCH (08:45)
[2018-07-31] MEDS: ALLOPURINOL 100 MG TABLET PO SCH (08:45)
[2018-07-31] MEDS: CARVEDILOL 12.5 MG TABLET PO SCH ×2 (08:45→19:45)
[2018-07-31] MEDS: OXYcodone/APAP 5/325MG TABLET PO SCH ×3 (08:45→19:45)
[2018-07-31] MEDS: GABAPENTIN 300 MG CAPSULE PO SCH ×3 (08:45→19:45)
[2018-07-31 10:30] VITALS: BP 88/58
[2018-07-31 12:23] VITALS: BP 79/52
[2018-07-31] MEDS ORDERED: AZITHROMYCIN 500 MG TABLET PO ONE (16:00)
[2018-07-31] MEDS ORDERED: PHARMACY MAY ADJ FOR RENAL FX MC PRN (16:00)
[2018-07-31] MEDS ORDERED: CEFAZOLIN PMX 1GM/50ML 50 ML IV SCH (16:00)
[2018-07-31] MEDS ORDERED: MORPHINE SULFATE 4 MG/ML, 1ML IVPush PRN (16:30)
[2018-07-31 19:21] VITALS: BP 102/54
[2018-07-31] MEDS: ATORVASTATIN 40 MG TABLET PO SCH (19:45)
[2018-07-31] MEDS: INSULIN GLARGINE 100 UNITS/ML, PEN SQ-INSULIN SCH (20:45)
[2018-08-01 00:19] VITALS: BP 82/51
[2018-08-01] MEDS: HEPARIN 5,000 UNITS/ML, 1ML SQ SCH ×2 (05:00→13:11)
[2018-08-01 05:17] LABS: BASOPHILS # (AUTO) 0.03 x10^3/uL (0-0.1); BASOPHILS % (AUTO) 0 % (0-1); EOSINOPHILS # (AUTO) 0.38 x10^3/uL (0-0.4); EOSINOPHILS % (AUTO) 4 % (1-7); LYMPHOCYTES # (AUTO) 1.14 x10^3/uL (1-3.4); LYMPHOCYTES % (AUTO) 13 % (22-44); MD NO; MEAN CORPUSCULAR HEMOGLOBIN 32.3 pg (27.5-34.5); MEAN CORPUSCULAR HGB CONC 33.4 g/dL (33.2-36.2); MEAN CORPUSCULAR VOLUME 96.7 fL (81-97); MEAN PLATELET VOLUME 8.8 fL (7.4-10.4); MONOCYTES # (AUTO) 0.54 x10^3/uL (0.2-0.8); MONOCYTES % (AUTO) 6 % (2-9); NEUTROPHILS # (AUTO) 7.03 x10^3/uL (1.8-6.8); NEUTROPHILS % (AUTO) 77 % (42-75); PLATELET COUNT 294 x10^3/uL (130-400); RED BLOOD COUNT 4.06 x10^6/uL (4.38-5.82)
[2018-08-01 05:28] LABS: ALBUMIN 2.7 g/dL (3.4-5.0); ANION GAP 14 mmol/L (5-15); CALCIUM 8.5 mg/dL (8.5-10.1); CHLORIDE 93 mmol/L (98-107)
[2018-08-01] MEDS: ASPIRIN 81 MG TABLET EC PO SCH (05:42)
[2018-08-01 07:01] VITALS: BP 156/112
[2018-08-01 07:56] VITALS: BP 109/73
[2018-08-01] MEDS: CALCITRIOL 0.5 MCG CAPSULE PO SCH (07:57)
[2018-08-01] MEDS: SEVELAMER CARBONATE 800MG TAB PO SCH ×2 (07:57→12:03)
[2018-08-01] MEDS: ALLOPURINOL 100 MG TABLET PO SCH (07:57)
[2018-08-01] MEDS: GABAPENTIN 300 MG CAPSULE PO SCH (07:57)
[2018-08-01] MEDS: SENNA/DOCUSATE TABLET PO SCH (07:57)
[2018-08-01] MEDS: MULTIVITAMIN 1 TABLET PO SCH (07:58)
[2018-08-01] MEDS: CARVEDILOL 12.5 MG TABLET PO SCH (07:58)
[2018-08-01] MEDS: OXYcodone/APAP 5/325MG TABLET PO SCH (07:58)
[2018-08-01] MEDS: AMLODIPINE 5 MG TABLET PO SCH (07:58)
[2018-08-01] MEDS: LINAGLIPTIN 5 MG TAB PO SCH (07:58)
[2018-08-01] MEDS: POLYETHYLENE GLYCOL 17 GM PACKET PO PRN (08:06)
[2018-08-01] MEDS ORDERED: AZIT500T5 PO (14:34)
[2018-08-01] MEDS ORDERED: CEPH-368 PO (14:34)
== END 2018-08-01 15:53 | disposition hospice, home (50) | DRG 73 ==
LOC: ED 16:56 → EDIP 16:57 → ED 16:59 → 4WST 18:30
PROVIDERS: ADMIT Hospitalist; ATTEND Hospitalist
PROC: 5A1D70Z Performance of Urinary Filtration, Intermittent, Less than 6 Hours Per Day (ICD-10-PCS; principal; 2018-07-27)
PROC: 5A1D70Z Performance of Urinary Filtration, Intermittent, Less than 6 Hours Per Day (ICD-10-PCS; 2018-07-29)
PROC: 5A1D70Z Performance of Urinary Filtration, Intermittent, Less than 6 Hours Per Day (ICD-10-PCS; 2018-07-30)
PROC: 5A1D70Z Performance of Urinary Filtration, Intermittent, Less than 6 Hours Per Day (ICD-10-PCS; 2018-07-31)
DX: G62.9 Polyneuropathy, unspecified (principal); N18.6 End stage renal disease; I13.2 Hypertensive heart and chronic kidney disease with heart failure and with stage 5 chronic kidney disease, or end stage renal disease; I50.42 Chronic combined systolic (congestive) and diastolic (congestive) heart failure; N25.81 Secondary hyperparathyroidism of renal origin; E87.2 Acidosis; Z68.41 Body mass index [BMI] 40.0-44.9, adult; E11.22 Type 2 diabetes mellitus with diabetic chronic kidney disease; D63.1 Anemia in chronic kidney disease; N25.0 Renal osteodystrophy; K21.9 Gastro-esophageal reflux disease without esophagitis; F17.210 Nicotine dependence, cigarettes, uncomplicated; G89.29 Other chronic pain; I27.20 Pulmonary hypertension, unspecified; E78.5 Hyperlipidemia, unspecified; E66.9 Obesity, unspecified; E66.01 Morbid (severe) obesity due to excess calories; M10.9 Gout, unspecified; L98.499 Non-pressure chronic ulcer of skin of other sites with unspecified severity; I71.4 Abdominal aortic aneurysm, without rupture; I48.91 Unspecified atrial fibrillation; E86.0 Dehydration; Z99.2 Dependence on renal dialysis; Z91.19 Patient's noncompliance with other medical treatment and regimen; Z82.49 Family history of ischemic heart disease and other diseases of the circulatory system; Z88.8 Allergy status to other drugs, medicaments and biological substances; Z22.321 Carrier or suspected carrier of Methicillin susceptible Staphylococcus aureus
CPT/HCPCS: 36415; 74022; 80048; 80053; 80202; 82040; 82140; 82962; 83605; 83735; 83880; 84100; 84145; 84439; 84443; 85025; 85651; 86140; 86704; 86705; 86706; 86803; 87040; 87070; 87077; 87186; 87205; 87340; 93005; 93922; 99285; G0378; J1644; J3370; J1815; J2270; J7040